=== PATIENT | male | born 1990 | race Caucasian/White ===

== ENCOUNTER 2016-09-10 19:21 | Emergency (ER) | payer MEDICAID ==
[2016-09-10] MEDS ORDERED: NORMAL SALINE 1000 ML 1,000 ML IV ONE (20:13)
[2016-09-10] MEDS ORDERED: IBUPROFEN 600 MG TABLET PO ONE (20:13)
[2016-09-10] MEDS ORDERED: ONDANSETRON 4 MG TAB.RAPDIS PO ONE (20:13)
--- NOTE | 2016-09-10 20:19 | ER Document Report ---
ED Medical Screen (RME) - General Stated Complaint: LOWER BACK PAIN Notes: 25 year old male, c/o vomiting and abd/flank pain on both sides starting today. Reports chills, sore throat. Denies hx stones, hx IV drug abuse, denies focal numbness or weakness, denies any surgeries or daily meds. TRAVEL OUTSIDE OF THE [place] IN LAST 30 DAYS: No - Related Data Allergies/Adverse Reactions: pseudoephedrine HCl [From Sudafed] Allergy (Verified 09/17/15 21:53) Past Medical History Psychiatric Medical History: Reports: Hx Attention Deficit Hyperactivity Disorder, Hx Bipolar Disorder - Immunizations Hx Diphtheria, Pertussis, Tetanus Vaccination: Yes Physical Exam - Back Back: Tender - generalized mid to lower, slightly worse on the left Course - Re-evaluation Re-evalutation: flank pain worse on the left but also generalized, abdomen generally tender in the upper abd, difficult to assess based on wheelchair and patient habitus. Patient tachycardic. Ordering IVF, placed as 3H.
--- NOTE | 2016-09-10 22:14 | ER Document Report ---
ED General - General Mode of Arrival: Ambulatory Information source: Patient TRAVEL OUTSIDE OF THE [place] IN LAST 30 DAYS: No - HPI Onset: This morning Onset/Duration: Persistent Quality of pain: Achy Severity: None Similar symptoms previously: No Recently seen / treated by doctor: No <AMY LUKE - Last Filed: 09/10/16 22:44> <GOLDIE MEJIA - Last Filed: 10/04/16 11:03> - General Chief Complaint: Back Pain Stated Complaint: LOWER BACK PAIN Notes: Patient is a 25-year-old male that presents to the emergency department today with complaints of low back pain which began this morning. Patient also mentions that he has had a sore throat, vomiting, and chills today. Patient states he noticed the back pain first upon awakening this morning, he states he attempted to "walk it off" which made it worse. Patient states he felt fine when he went to bed last night and he had no injury or trauma to his back. Patient also denies any previous injuries to his back. Patient denies a cough. (AMY LUKE) - Related Data Allergies/Adverse Reactions: pseudoephedrine HCl [From Sudafed] Allergy (Verified 09/17/15 21:53) Past Medical History - General Information source: Patient - Social History Smoking Status: Never Smoker Cigarette use (# per day): No Frequency of alcohol use: None Drug Abuse: None Lives with: Family Family History: Reviewed & Not Pertinent Psychiatric Medical History: Reports: Hx Attention Deficit Hyperactivity Disorder, Hx Bipolar Disorder Surgical Hx: Negative - Immunizations Hx Diphtheria, Pertussis, Tetanus Vaccination: Yes <AMY LUKE - Last Filed: 09/10/16 22:44> Review of Systems - Review of Systems Constitutional: See HPI, Chills. denies: Fever EENT: See HPI, Throat pain Cardiovascular: No symptoms reported Respiratory: denies: Cough Gastrointestinal: See HPI, Vomiting Genitourinary: No symptoms reported Male Genitourinary: No symptoms reported Musculoskeletal: See HPI, Back pain - low back pain Skin: No symptoms reported Hematologic/Lymphatic: No symptoms reported Neurological/Psychological: No symptoms reported -: Yes All other systems reviewed and negative <AMY LUKE - Last Filed: 09/10/16 22:44> Physical Exam <AMY LUKE - Last Filed: 09/10/16 22:44> <GOLDIE MEJIA - Last Filed: 10/04/16 11:03> - Vital signs Vitals: Pulse Resp BP Pulse Ox 92 16 118/63 94 09/11/16 00:27 09/11/16 00:27 09/11/16 00:27 09/11/16 00:27 - Notes Notes: Physical Exam: General: Alert, appears well. HEENT: Normocephalic. Atraumatic. PERRL. Extraocular movements intact. Oropharynx clear. TMs are clear bilaterally. No posterior pharynx erythema or exudate. Neck: Supple. Non-tender. Respiratory: No respiratory distress. Clear and equal breath sounds bilaterally. Cardiovascular: Regular rate and rhythm. Abdominal: Normal Inspection. Non-tender. No distension. Normal Bowel Sounds. Back: Paralumbar tenderness with palpation. Negative straight leg raise bilaterally. No deformity or step off. Extremities: Moves all four extremities. Upper extremities: Normal inspection. Normal ROM. Lower extremities: Normal inspection. No edema. Normal ROM. Neurological: Normal cognition. AAOx4. Normal speech. 2+ patellar DTRs bilaterally. Psychological: Normal affect. Normal Mood. Skin: Warm. Dry. Normal color. (AMY LUKE) Course - Laboratory Result Diagrams: 09/10/16 22:10 09/10/16 22:10 <AMY LUKE - Last Filed: 09/10/16 22:44> - Laboratory Result Diagrams: 09/10/16 22:10 09/10/16 22:10 <GOLDIE MEJIA - Last Filed: 10/04/16 11:03> - Re-evaluation Re-evalutation: 09/10/16 22:58 Patient presents emergency, chief plain low back pain. Says he woke up with it this morning and denies any injury. Pain is paralumbar nature no loss of bowel or bladder function. Patient is ambulatory with pain when he moves or sits in the upright position. He doesn't work to get anything in particular they did denies a history of back pain no burning with urination blood in the urine fevers chills cough chest pain shortness of breath or flank pain. He also reports a sore throat on it's been going on for approximately 1 day. He reports one episode of vomiting but no diarrhea or blood in his stool. He has a history of bipolar is not currently on his medications and hasn't seen his primary care physician recently. On examination he is afebrile normotensive and tachycardic. His awake alert GCS 15 no acute distress. Heart lungs abdomen no acute guarding rebound rigidity he's got no midline cervical thoracic or lumbar tenderness Paralumbar muscular skeletal tenderness bilaterally. No redness swelling abrasion contusion or deformity to the back no recent instrumentation or concerns for spinal epidural abscess. Equal bilateral femoral dorsalis pedis posterior tibial pulses was negative straight leg raise test. With reevaluation and been ordered prior to my seeing the patient. X-ray of the lumbar spine is ordered urinalysis and Toradol. Pharynx is normal, and strep test is ordered. 09/10/16 23:45 Acute workup positive for strep patient given Toradol Bicillin L-A 1.2 million units IM no concerns for peritonsillar abscess or sepsis. We'll discharge given primary care physician for follow-up and discuss reasons for ED return sooner ( GOLDIE MEJIA) - Vital Signs Vital signs: Temp Pulse Resp BP Pulse Ox 92 16 118/63 94 09/11/16 00:27 09/11/16 00:27 09/11/16 00:27 09/11/16 00:27 - Laboratory Laboratory results interpreted by me: 09/10/16 09/10/16 22:10 22:10 WBC 13.0 H RBC 5.80 H Seg Neutrophils % 82.7 H Lymphocytes % 9.0 L Absolute Neutrophils 10.7 H Glucose 112 H Discharge <AMY LUKE - Last Filed: 09/10/16 22:44> <GOLDIE MEJIA - Last Filed: 10/04/16 11:03> - Discharge Clinical Impression: acute strep pharyngitis, low back pain Condition: Stable Disposition: HOME, SELF-CARE Instructions: Low Back Pain ([facility]) Additional Instructions: Strep Throat Your sore throat is due to the streptococcus germ (strep throat). Strep throat usually makes you feel quite ill with fever and aches, headache, swollen sore throat, and tender bumps under the angles of the jaw. Strep throat requires antibiotic treatment. Although the sore throat may go away by itself, complications such as rheumatic fever, kidney disease, or throat abscess can occur. We usually prescribe antibiotics by mouth. Be sure to take the medicine until it's gone. If you stop early, the strep may come back. If you are vomiting, are severely ill, or can't remember to take pills, we can give you an antibiotic shot. Take acetaminophen or ibuprofen for pain and fever. Sip frequent clear liquids, or use popsicles or ice chips. Anesthetic sprays or lozenges may help. Make sure the air in the room is not too dry. Avoid using decongestants or antihistamines. Call the doctor if there is no improvement in three days, or if you have difficulty breathing, increasing throat pain, high fever, rash, or frequent vomiting. Referrals: JUDAH HUGO PA-C [Primary Care Provider] - (Call for an appointment to be seen in follow-up in 3-4 days return for increasing worsening or any symptoms) Scribe Attestation: 09/10/16 23:47 I personally performed the services described in the documentation reviewed the documentation recorded by my scribe in my presence and it accurately and completely records my words and actions (GOLDIE MEJAI) Scribe Documentation - Scribe Written by Lilibeth:: Lilibeth Garner, [id number] 09/10/2016 acting as scribe for :: Henrry <AMY LUKE - Last Filed: 09/10/16 22:44>
[2016-09-10] MEDS ORDERED: KETOROLAC TROMETHAMINE 60 MG/2 ML SDV IM ONE (22:15)
[2016-09-10 22:33] LABS: ABSOLUTE EOSINOPHILS # (AUTO) 0.1 10^3/uL (0.0-0.6); ABSOLUTE LYMPHOCYTES (AUTO) 1.2 10^3/uL (0.5-4.7); ABSOLUTE NEUT (AUTO) 10.7 10^3/uL (1.7-8.2); BASOPHILS % (AUTO) 0.3 % (0-2); EOSINOPHILS % (AUTO) 0.5 % (0-6); HEMATOCRIT 48.7 % (37.9-51.0); HEMOGLOBIN 16.2 g/dL (13.5-17.0); HGB HCT DIFFERENCE -0.1; MEAN CORPUSCULAR HGB CONC 33.3 g/dL (32.0-36.0); MEAN CORPUSCULAR VOLUME 84 fl (80-97); MONOCYTES % (AUTO) 7.5 % (3-13); RED CELL DISTRIBUTION WIDTH 13.6 % (11.5-14.0); SEGMENTED NEUTROPHILS % (AUTO) 82.7 % (42-78)
[2016-09-10 22:40] LABS: APPEARANCE,URINE CLEAR; BILIRUBIN,URINE NEGATIVE (NEGATIVE); GLUCOSE, URINE NEGATIVE (NEGATIVE); KETONES,URINE NEGATIVE (NEGATIVE); LEUKOCYTE ESTERASE,URINE NEGATIVE (NEGATIVE); NITRITE,URINE NEGATIVE (NEGATIVE); PROTEIN,URINE NEGATIVE (NEGATIVE); URINE SPECIFIC GRAVITY 1.015; UROBILINOGEN,URINE NEGATIVE mg/dL (<2.0)
[2016-09-10 22:46] LABS: ALANINE AMINOTRANSFERASE 37 U/L (21-72); ALBUMIN 3.9 g/dL (3.5-5.0); ALKALINE PHOSPHATASE 71 U/L (38-126); ANION GAP 13 (5-19); ASPARTATE AMINO TRANSFERASE 27 U/L (17-59); BILIRUBIN,DIRECT 0.4 mg/dL (0.0-0.4); BLOOD UREA NITROGEN 17 mg/dL (7-20); CALCIUM 8.9 mg/dL (8.4-10.2); CARBON DIOXIDE 23 mmol/L (22-30); CHLORIDE 101 mmol/L (98-107); CREATININE RESULT 1.06 mg/dL (0.52-1.25); GLUCOSE 112 mg/dL (75-110); POTASSIUM 3.8 mmol/L (3.6-5.0); SODIUM 137.3 mmol/L (137-145); TOTAL PROTEIN 6.3 g/dL (6.3-8.2)
[2016-09-10 22:54] LABS: URINE BARBITURATES SCREEN NEGATIVE; URINE METHADONE SCREEN NEGATIVE; URINE OPIATES LOW NEGATIVE; URINE PHENCYCLIDINE SCREEN NEGATIVE
[2016-09-10] MEDS ORDERED: PENICILLIN G BENZATHINE 1.2 MILLION UNIT/2 ML DISP.SYRIN IM ONE (23:45)
[2016-09-11 00:28] VITALS: BP 118/63
== END 2016-09-11 00:27 | disposition home or self-care (01) ==
LOC: ER 19:21
DX: J02.0 Streptococcal pharyngitis (principal); M54.5 Low back pain; R68.83 Chills (without fever); R10.30 Lower abdominal pain, unspecified; R11.10 Vomiting, unspecified
CPT/HCPCS: 99283; 96372; 96360; 36415; 87880; 83690; 85025; 80053; 81001; 80307; 72110; J1885; S0119; J3490; J0561; J7030

== ENCOUNTER 2017-01-22 02:24 | Emergency (ER) | payer MEDICAID ==
--- NOTE | 2017-01-22 05:21 | ER Document Report ---
ED General - General Chief Complaint: Headache Stated Complaint: LIGHTHEADED,COLD SWEATS Time Seen by Provider: 01/22/17 05:20 Mode of Arrival: Ambulatory Information source: Patient Notes: 26 yo smoker occasional etoh, no drugs male c/o inability to smell or taste for over a week, sweats, waking up with intermittent frontal migraines, lightheadedness/vertigo intermittent all day long. Worse when bending forward. Almost fell in the shower. No cough. Started new medicine for ADHD. PMH: pilonidal cyst removed. TRAVEL OUTSIDE OF THE [place] IN LAST 30 DAYS: No - Related Data Allergies/Adverse Reactions: pseudoephedrine HCl [From Vicarious] Allergy (Verified 01/22/17 02:29) Past Medical History - General Information source: Patient - Social History Smoking Status: Current Every Day Smoker Frequency of alcohol use: Occasional Drug Abuse: None Lives with: Spouse/Significant other Family History: Reviewed & Not Pertinent Renal/ Medical History: Denies: Hx Peritoneal Dialysis Psychiatric Medical History: Reports: Hx Attention Deficit Hyperactivity Disorder, Hx Bipolar Disorder Surgical Hx: Negative - Immunizations Hx Diphtheria, Pertussis, Tetanus Vaccination: Yes Review of Systems - Review of Systems Constitutional: No symptoms reported EENT: See HPI Cardiovascular: No symptoms reported Respiratory: No symptoms reported Gastrointestinal: No symptoms reported Genitourinary: No symptoms reported Male Genitourinary: No symptoms reported Musculoskeletal: No symptoms reported Skin: No symptoms reported Hematologic/Lymphatic: No symptoms reported Neurological/Psychological: See HPI Physical Exam - Vital signs Vitals: Temp Pulse Resp BP Pulse Ox 97.9 F 88 16 136/90 H 97 01/22/17 02:29 01/22/17 02:29 01/22/17 02:29 01/22/17 02:29 01/22/17 02:29 Interpretation: Normal - Notes Notes: no dizzy or vertigo with standing at the bed, IV fluids infused. - General General appearance: Appears well - no d, Alert, Other - flat affect, avoids eye contact In distress: None - HEENT Head: Normocephalic, Atraumatic Eyes: Normal Conjunctiva: Normal Pupils: PERRL Tympanic membrane: Normal Sinus: No: Swelling Nasal: Other - boggy Pharynx: Normal Neck: Supple. No: Lymphadenopathy - Respiratory Respiratory status: No respiratory distress Chest status: Nontender Breath sounds: Normal Chest palpation: Normal - Cardiovascular Rhythm: Regular Heart sounds: Normal auscultation Murmur: No - Abdominal Inspection: Normal Distension: No distension Bowel sounds: Normal Tenderness: Nontender Organomegaly: No organomegaly - Back Back: Normal, Nontender - Extremities General upper extremity: Normal inspection, Nontender, Normal color, Normal ROM , Normal temperature General lower extremity: Normal inspection, Nontender, Normal color, Normal ROM , Normal temperature, Normal weight bearing. No: Caterina's sign - Neurological Neuro grossly intact: Yes Cognition: Normal Orientation: AAOx4 [place] Coma Scale Eye Opening: Spontaneous [place] Coma Scale Verbal: Oriented [place] Coma Scale Motor: Obeys Commands [place] Coma Scale Total: 15 Speech: Normal Motor strength normal: LUE, RUE, LLE, RLE Sensory: Normal - Psychological Associated symptoms: Normal mood, Flat affect, Other - frrstrated - Skin Skin Temperature: Warm Skin Moisture: Dry Skin Color: Normal Course - Re-evaluation Re-evalutation: 01/22/17 06:19 Patient did not want to take IV medicine he wanted the IV taken out will order the medication orally. 01/22/17 07:[address], explained to the pt - Vital Signs Vital signs: Temp Pulse Resp BP Pulse Ox 97.9 F 88 16 136/90 H 97 01/22/17 02:29 01/22/17 02:29 01/22/17 02:29 01/22/17 02:29 01/22/17 02:29 - Laboratory Result Diagrams: 01/22/17 05:40 01/22/17 05:40 Laboratory results interpreted by me: 01/22/17 01/22/17 05:40 05:40 WBC 12.0 H Eosinophils % 9.0 H Absolute Eosinophils 1.1 H ALT 98 H Discharge - Discharge Clinical Impression: dizziness, Anosmia, Taste absent Headache Qualifiers: Headache type: unspecified Headache chronicity pattern: unspecified pattern Intractability: not intractable Qualified Code(s): R51 - Headache Sinusitis Qualifiers: Sinusitis location: other Chronicity: acute Recurrence: non-recurrent Qualified Code(s): J01.80 - Other acute sinusitis Condition: Good Disposition: HOME, SELF-CARE Instructions: Anti-Inflammatory Medication ([facility]), Use of Diphenhydramine, ENT, Headache ([facility]), Neurologist, Augmentin ([facility]), Sinusitis ([facility]) Additional Instructions: see ears nose and throat doctor for the loss of sense of smell and taste/ sinusitis see neurologist for the headache to ER any concerns or new symptoms heat to sinus saline nasal spray four times per day Please complete the patient satisfaction survey if you get one, and return it.. If you do not receive a survey, then you can go to the [facility] website, [email or web address] and place your comments about your very good care. Thank you very much. It was a pleasure being your medical provider today. Prescriptions: Amoxicillin/Potassium Clav [Augmentin 875-125 Tablet] 1 each PO BID #20 tablet Referrals: MAJOR LOJA MD [NO LOCAL MD] - Follow up as needed
[2017-01-22] MEDS ORDERED: NORMAL SALINE 1000 ML 1,000 ML IV ONE (05:36)
[2017-01-22] MEDS ORDERED: PROCHLORPERAZINE EDISYLATE INJ 10 MG/2 ML VIAL IV ONE (05:41)
[2017-01-22] MEDS ORDERED: DIPHENHYDRAMINE HCL 50 MG/ML VIAL IV ONE (05:41)
[2017-01-22 05:59] LABS: ABSOLUTE BASOPHILS # (AUTO) 0.1 10^3/uL (0.0-0.2); ABSOLUTE EOSINOPHILS # (AUTO) 1.1 10^3/uL (0.0-0.6); ABSOLUTE LYMPHOCYTES (AUTO) 3.4 10^3/uL (0.5-4.7); ABSOLUTE NEUT (AUTO) 6.5 10^3/uL (1.7-8.2); BASOPHILS % (AUTO) 0.7 % (0-2); HEMATOCRIT 46.2 % (37.9-51.0); HEMOGLOBIN 15.7 g/dL (13.5-17.0); HGB HCT DIFFERENCE 0.9; LYMPHOCYTES % (AUTO) 27.8 % (13-45); MEAN CORPUSCULAR HEMOGLOBIN 28.6 pg (27.0-33.4); MEAN CORPUSCULAR HGB CONC 33.9 g/dL (32.0-36.0); MEAN CORPUSCULAR VOLUME 84 fl (80-97); MONOCYTES % (AUTO) 8.7 % (3-13); RED BLOOD COUNT 5.48 10^6/uL (4.35-5.55); RED CELL DISTRIBUTION WIDTH 13.4 % (11.5-14.0); SEGMENTED NEUTROPHILS % (AUTO) 53.8 % (42-78)
[2017-01-22 06:10] LABS: ALANINE AMINOTRANSFERASE 98 U/L (21-72); ALKALINE PHOSPHATASE 80 U/L (38-126); ANION GAP 12 (5-19); ASPARTATE AMINO TRANSFERASE 47 U/L (17-59); BILIRUBIN,DIRECT 0.4 mg/dL (0.0-0.4); BILIRUBIN,TOTAL 0.5 mg/dL (0.2-1.3); BLOOD UREA NITROGEN 17 mg/dL (7-20); CALCIUM 9.6 mg/dL (8.4-10.2); CARBON DIOXIDE 26 mmol/L (22-30); CHLORIDE 104 mmol/L (98-107); CREATININE RESULT 1.14 mg/dL (0.52-1.25); GLUCOSE 92 mg/dL (75-110); POTASSIUM 3.8 mmol/L (3.6-5.0); SODIUM 142.1 mmol/L (137-145); TOTAL PROTEIN 6.7 g/dL (6.3-8.2)
[2017-01-22] MEDS ORDERED: DIPHENHYDRAMINE HCL 50 MG CAPSULE PO ONE (06:17)
[2017-01-22] MEDS ORDERED: PROCHLORPERAZINE MALEATE 10 MG TABLET PO ONE (06:17)
[2017-01-22] MEDS ORDERED: IBUPROFEN 800 MG TABLET PO ONE (06:22)
--- NOTE | 2017-01-22 07:02 | RADIOLOGY REPORT (SQ) ---
EXAM DESCRIPTION: CT HEAD WITHOUT COMPLETED DATE/TIME: 01/22/2017 6:25 am REASON FOR STUDY: headache COMPARISON: 09/05/2006. TECHNIQUE: Axial images acquired through the brain without intravenous contrast. Images reviewed wi th bone, brain and subdural windows. Images stored on PACS. All CT scanners at this facility use dose modulation, iterative reconstruction, and/or weight based d osing when appropriate to reduce radiation dose to as low as reasonably achievable (ALARA). [facility]: Dose Right [facility]: CareDose [facility]: Dose Right [facility]: Teradose 4D [facility]: Smart [employer] RADIATION DOSE: Up-to-date CT equipment and radiation dose reduction techniques were employed. CTDIv ol: 64.6 mGy. DLP: 1163 mGy-cm. mGy. LIMITATIONS: None. FINDINGS: VENTRICLES: Normal size and contour. CEREBRUM: No masses. No hemorrhage. No midline shift. No evidence for acute infarction. Normal gra y/white matter differentiation. No areas of low density in the white matter. CEREBELLUM: No masses. No hemorrhage. No alteration of density. No evidence for acute infarction. EXTRAAXIAL SPACES: No fluid collections. No masses. ORBITS AND GLOBE: No intra- or extraconal masses. Normal contour of globe without masses. CALVARIUM: No fracture. PARANASAL SINUSES: Moderate -severe mucous -mucosal occlusion of bilateral maxillary air cells with a ir-fluid levels, left more than right, moderate soft tissue occlusion of the ethmoid air cells, and m [id number] sphenoid mucosal thickening, new compared with prior CT, 09/05/2006. SOFT TISSUES: No mass or hematoma. OTHER: No other significant finding. IMPRESSION: Moderate to severe sinusitis of the maxillary and ethmoid air cells with acute inflammat ory components. Otherwise, no significant CT abnormality of the brain. COMMENT: Quality ID # [id number]: Final reports with documentation of one or more dose reduction techniques (e.g., Automated exposure control, adjustment of the mA and/or kV according to patient size, use of iterative reconstruction technique) TECHNICAL DOCUMENTATION: JOB ID: [id number] [employer]- All Rights Reserved
[2017-01-22] MEDS ORDERED: AMOXICILLIN TRIHYDRATE 500 MG CAPSULE PO ONE (07:11)
[2017-01-22] MEDS ORDERED: AMOXICILLIN TR/POT CLAVULANATE 500-125 MG TAB PO ONE (07:11)
[2017-01-22 07:43] VITALS: BP 131/82
== END 2017-01-22 07:43 | disposition home or self-care (01) ==
LOC: ER 02:24
DX: R42 Dizziness and giddiness (principal); R43.0 Anosmia; R43.9 Unspecified disturbances of smell and taste; J01.80 Other acute sinusitis; R51 Headache; F17.200 Nicotine dependence, unspecified, uncomplicated
CPT/HCPCS: 99284; 36415; 85025; 80053; 70450; J3490 ×2; S0183

== ENCOUNTER 2017-02-19 01:33 | Emergency (ER) | payer MEDICAID ==
[2017-02-19 01:42] VITALS: BP 141/88
== END 2017-02-19 04:01 | disposition left against medical advice (07) ==
LOC: ER 01:33
DX: Z53.21 Procedure and treatment not carried out due to patient leaving prior to being seen by health care provider (principal)

== ENCOUNTER 2017-02-26 00:23 | Emergency (ER) | payer MEDICAID ==
[2017-02-26] MEDS ORDERED: GABAPENTIN 300 MG CAPSULE PO ONE (02:03)
--- NOTE | 2017-02-26 02:06 | ER Document Report ---
ED General - General Chief Complaint: Numbness of Arm Stated Complaint: TINGLING IN RIGHT ARM Time Seen by Provider: 02/26/17 01:46 Notes: Patient is a 26-year-old male who presents with paresthesias to his right first through third digits. Patient states that this started after a staff member at a plasma donation center attempted to place an IV on 2 separate occasions apparently striking a nerve on both times resulting in the development of paresthesias to the affected regions. He does note a dull, burning, moderate discomfort to the affected areas. Nothing improves or worsens his symptoms. He denies a history of similar symptoms in the past. He has not seen his primary doctor regarding today's concerns. He denies any loss of motor function. No additional symptoms in any other location of his body. TRAVEL OUTSIDE OF THE [place] IN LAST 30 DAYS: No - Related Data Allergies/Adverse Reactions: pseudoephedrine HCl [From Sudafed] Allergy (Verified 02/19/17 01:39) Past Medical History - General Information source: Patient - Social History Smoking Status: Never Smoker Frequency of alcohol use: None Drug Abuse: None Lives with: Spouse/Significant other Family History: Reviewed & Not Pertinent Patient has suicidal ideation: No Patient has homicidal ideation: No Renal/ Medical History: Denies: Hx Peritoneal Dialysis Psychiatric Medical History: Reports: Hx Attention Deficit Hyperactivity Disorder, Hx Bipolar Disorder - Immunizations Hx Diphtheria, Pertussis, Tetanus Vaccination: Yes Review of Systems - Review of Systems Notes: Constitutional: Negative for fever. HENT: Negative for sore throat. Eyes: Negative for visual changes. Cardiovascular: Negative for chest pain. Respiratory: Negative for shortness of breath. Gastrointestinal: Negative for abdominal pain, vomiting or diarrhea. Genitourinary: Negative for dysuria. Musculoskeletal: Negative for back pain. Skin: Negative for rash. Neurological: Negative for headaches, positive for paresthesias to the right hand 10 point ROS negative except as marked above and in HPI. Physical Exam - Vital signs Vitals: Temp Pulse Resp BP Pulse Ox 98.7 F 91 18 149/98 H 98 02/26/17 00:49 02/26/17 00:49 02/26/17 00:49 02/26/17 00:49 02/26/17 00:49 Interpretation: Hypertensive Notes: PHYSICAL EXAMINATION: GENERAL: Well-appearing, well-nourished and in no acute distress. HEAD: Atraumatic, normocephalic. EYES: Pupils equal round and reactive to light, extraocular movements intact, sclera anicteric, conjunctiva are normal. ENT: nares patent, oropharynx clear without exudates. Moist mucous membranes. NECK: Normal range of motion, supple without lymphadenopathy LUNGS: Breath sounds clear to auscultation bilaterally and equal. No wheezes rales or rhonchi. HEART: Regular rate and rhythm without murmurs ABDOMEN: Soft, nontender, normoactive bowel sounds. No guarding, no rebound. No masses appreciated. EXTREMITIES: Normal range of motion, no pitting or edema. No cyanosis. NEUROLOGICAL: No focal neurological deficits. Moves all extremities spontaneously and on command. RMU motor and sensory distribution is intact bilaterally. Patient does have dulling of sensation however to the first through third digits on the volar aspect of the right hand. Consistent with median nerve distribution. PSYCH: Normal mood, normal affect. SKIN: Warm, Dry, normal turgor, no rashes or lesions noted. Course - Re-evaluation Re-evalutation: 02/26/17 02:02 Patient presents with median nerve distribution paresthesias of the left hand after apparently having this nerve struck during a blood draw attempt at a plasma donation center twice today. Patient reports paresthesias the area but has no true sensory loss or motor deficit. Suspect likely acute neuropathy in the setting of acute irritation from an IV attempt. No indication for labs or imaging. I will start the patient on gabapentin given his discomfort for the area and have instructed him to follow-up with a neurologist if he is not having improvement of symptoms within the next 1-2 weeks. At this time will discharge with return precautions and follow-up recommendations. Verbal discharge instructions given a the bedside and opportunity for questions given. Medication warnings reviewed. Patient is in agreement with this plan and has verbalized understanding of return precautions and the need for primary care follow-up in the next 24-72 hours. - Vital Signs Vital signs: Temp Pulse Resp BP Pulse Ox 98.7 F 91 18 149/98 H 98 02/26/17 00:49 02/26/17 00:49 02/26/17 00:49 02/26/17 00:49 02/26/17 00:49 Discharge - Discharge Clinical Impression: Paresthesias in right hand Median nerve injury Qualifiers: Encounter type: initial encounter Location of peripheral nerve injury: forearm Laterality: right Qualified Code(s): S54.11XA - Injury of median nerve at forearm level, right arm, initial encounter Condition: Good Disposition: HOME, SELF-CARE Additional Instructions: Your symptoms are likely related to any irritation of your median nerve from the blood draw today. Your being started on gabapentin which you can take for discomfort to the area until your symptoms are resolved. Please follow-up with a neurologist if you are not having resolution of your symptoms over the next 1- 2 weeks. Return to the emergency department if you develop worsening of your symptoms, weakness, or any new symptoms that are worrisome to you. Prescriptions: Gabapentin 300 mg PO TID #60 capsule
[2017-02-26 03:03] VITALS: BP 154/84
== END 2017-02-26 03:03 | disposition home or self-care (01) ==
LOC: ER 00:23
DX: S54.11XA Injury of median nerve at forearm level, right arm, initial encounter (principal); R20.0 Anesthesia of skin; X58.XXXA Exposure to other specified factors, initial encounter
CPT/HCPCS: 99283; J3490

== ENCOUNTER 2017-03-15 13:25 | Emergency (ER) | payer MEDICAID ==
--- NOTE | 2017-03-15 14:25 | ER Document Report ---
ED Medical Screen (RME) - General Chief Complaint: Testicular Pain Stated Complaint: PAIN WITH URINATION Time Seen by Provider: 03/15/17 14:24 Notes: Patient reports 1 week of intermittent right testicle pain. It is worse with movement, bowel movements, coughing. TRAVEL OUTSIDE OF THE [place] IN LAST 30 DAYS: No - Related Data Allergies/Adverse Reactions: pseudoephedrine HCl [From Sudafed] Allergy (Verified 03/15/17 13:28) Home Medications: Current Home Medications Atomoxetine HCl [Strattera] 25 mg PO BID 03/15/17 [History] Olanzapine/Fluoxetine HCl [Symbyax 6-25 mg Capsule] 1 tab PO DAILY 03/15/17 [ History] Past Medical History Renal/ Medical History: Denies: Hx Peritoneal Dialysis Psychiatric Medical History: Reports: Hx Attention Deficit Hyperactivity Disorder, Hx Bipolar Disorder - Immunizations Hx Diphtheria, Pertussis, Tetanus Vaccination: Yes Physical Exam - Vital signs Vitals: Temp Pulse Resp BP Pulse Ox 98.2 F 100 20 141/89 H 97 03/15/17 13:28 03/15/17 13:28 03/15/17 13:28 03/15/17 13:28 03/15/17 13:28 Course - Vital Signs Vital signs: Temp Pulse Resp BP Pulse Ox 98.2 F 100 20 141/89 H 97 03/15/17 13:28 03/15/17 13:28 03/15/17 13:28 03/15/17 13:28 03/15/17 13:28
[2017-03-15 14:54] LABS: ABSOLUTE BASOPHILS # (AUTO) 0.1 10^3/uL (0.0-0.2); ABSOLUTE EOSINOPHILS # (AUTO) 1.1 10^3/uL (0.0-0.6); ABSOLUTE MONOCYTES (AUTO) 0.6 10^3/uL (0.1-1.4); ABSOLUTE NEUT (AUTO) 4.7 10^3/uL (1.7-8.2); BASOPHILS % (AUTO) 1.2 % (0-2); EOSINOPHILS % (AUTO) 12.8 % (0-6); HEMATOCRIT 46.9 % (37.9-51.0); HEMOGLOBIN 16.3 g/dL (13.5-17.0); LYMPHOCYTES % (AUTO) 23.8 % (13-45); MEAN CORPUSCULAR HEMOGLOBIN 29.1 pg (27.0-33.4); MEAN CORPUSCULAR HGB CONC 34.7 g/dL (32.0-36.0); MEAN CORPUSCULAR VOLUME 84 fl (80-97); MONOCYTES % (AUTO) 6.8 % (3-13); RED BLOOD COUNT 5.59 10^6/uL (4.35-5.55); RED CELL DISTRIBUTION WIDTH 13.4 % (11.5-14.0); SEGMENTED NEUTROPHILS % (AUTO) 55.4 % (42-78); WHITE BLOOD COUNT 8.5 10^3/uL (4.0-10.5)
[2017-03-15 15:00] LABS: APPEARANCE,URINE SLIGHTLY-CLOUDY; BILIRUBIN,URINE NEGATIVE (NEGATIVE); GLUCOSE, URINE NEGATIVE (NEGATIVE); KETONES,URINE NEGATIVE (NEGATIVE); LEUKOCYTE ESTERASE,URINE NEGATIVE (NEGATIVE); NITRITE,URINE NEGATIVE (NEGATIVE); PROTEIN,URINE NEGATIVE (NEGATIVE); URINE SPECIFIC GRAVITY 1.011; UROBILINOGEN,URINE NEGATIVE mg/dL (<2.0)
[2017-03-15 15:25] LABS: ALANINE AMINOTRANSFERASE 43 U/L (21-72); ALKALINE PHOSPHATASE 75 U/L (38-126); ANION GAP 12 (5-19); ASPARTATE AMINO TRANSFERASE 22 U/L (17-59); BILIRUBIN,DIRECT 0.3 mg/dL (0.0-0.4); BILIRUBIN,TOTAL 0.5 mg/dL (0.2-1.3); BLOOD UREA NITROGEN 15 mg/dL (7-20); CALCIUM 9.1 mg/dL (8.4-10.2); CARBON DIOXIDE 25 mmol/L (22-30); CHLORIDE 105 mmol/L (98-107); CREATININE RESULT 0.97 mg/dL (0.52-1.25); GLUCOSE 104 mg/dL (75-110); POTASSIUM 4.1 mmol/L (3.6-5.0); TOTAL PROTEIN 6.3 g/dL (6.3-8.2)
[2017-03-15] MEDS ORDERED: OXYCODONE-ACETAMINOPHEN 5-325 MG TABLET PO ONE (15:34)
--- NOTE | 2017-03-15 16:31 | ER Document Report ---
ED GI/ <JULIOTRISTIAN - Last Filed: 03/15/17 16:38> - General Mode of Arrival: Ambulatory Information source: Patient TRAVEL OUTSIDE OF THE [place] IN LAST 30 DAYS: No - HPI Patient complains to provider of: Testicular pain - right testicular pain Onset: Last week Exacerbated by: Coughing, Other - BMs <GITA LOPEZ - Last Filed: 03/15/17 16:56> - General Chief Complaint: Testicular Pain Stated Complaint: PAIN WITH URINATION Time Seen by Provider: 03/15/17 14:24 Notes: Patient is a 26 year old male that presents to the emergency department with complaints of right testicular pain onset 5 days ago. Patient states that the pain is exacerbated when he coughs or having a BM. Patient denies any back pain. At bedside patient and patient's girlfriend seem irritable. (GITA LOPEZ) - Related Data Allergies/Adverse Reactions: pseudoephedrine HCl [From [employer]] Allergy (Verified 03/15/17 13:28) Home Medications: Current Home Medications Atomoxetine HCl [Strattera] 25 mg PO BID 03/15/17 [History] Olanzapine/Fluoxetine HCl [Symbyax 6-25 mg Capsule] 1 tab PO DAILY 03/15/17 [ History] Past Medical History - General Information source: Patient - Social History Smoking Status: Current Every Day Smoker Cigarette use (# per day): Yes - 1 pack a day Chew tobacco use (# tins/day): No Frequency of alcohol use: None Drug Abuse: None Family History: Reviewed & Not Pertinent Patient has suicidal ideation: No Patient has homicidal ideation: No Psychiatric Medical History: Reports: Hx Attention Deficit Hyperactivity Disorder, Hx Bipolar Disorder - Immunizations Hx Diphtheria, Pertussis, Tetanus Vaccination: Yes <GITA LOPEZ - Last Filed: 03/15/17 16:56> Review of Systems - Review of Systems Constitutional: No symptoms reported EENT: No symptoms reported Cardiovascular: No symptoms reported Respiratory: No symptoms reported Gastrointestinal: No symptoms reported Genitourinary: No symptoms reported Male Genitourinary: See HPI, Testicular pain Musculoskeletal: denies: Back pain Skin: No symptoms reported Hematologic/Lymphatic: No symptoms reported Neurological/Psychological: No symptoms reported -: Yes All other systems reviewed and negative <GITA LOPEZ - Last Filed: 03/15/17 16:56> Physical Exam - General General appearance: Appears well, Alert In distress: None - HEENT Head: Normocephalic, Atraumatic Eyes: Normal Conjunctiva: Normal Pupils: PERRL - Respiratory Respiratory status: No respiratory distress Chest status: Nontender Breath sounds: Normal - Cardiovascular Rhythm: Regular Heart sounds: Normal auscultation - Abdominal Inspection: Normal Bowel sounds: Normal Tenderness: Nontender Organomegaly: No organomegaly - Genitourinary Tenderness: Nontender - to groin insertion muscle or ingiunal area., Testicle tender - right testicle tender to palpation. No: Epididymis tender Scrotum: No: Swelling, Redness - Back Back: Normal. No: CVA tenderness - Extremities General upper extremity: Normal inspection, Normal ROM General lower extremity: Normal inspection, Normal ROM - Neurological Neuro grossly intact: Yes Cognition: Normal Orientation: AAOx4 [place] Coma Scale Eye Opening: Spontaneous [place] Coma Scale Verbal: Oriented [place] Coma Scale Motor: Obeys Commands Alc[place] Coma Scale Total: 15 Speech: Normal - Psychological Associated symptoms: Normal affect, Irritable - Skin Skin Temperature: Warm Skin Moisture: Dry Skin Color: Normal <GITA LOPEZ - Last Filed: 03/15/17 16:56> - Vital signs Vitals: Temp Pulse Resp BP Pulse Ox 98.2 F 100 20 141/89 H 97 03/15/17 13:28 03/15/17 13:28 03/15/17 13:28 03/15/17 13:28 03/15/17 13:28 Course - Laboratory Result Diagrams: 03/15/17 14:32 03/15/17 14:32 - Diagnostic Test Radiology reviewed: Reports reviewed - Ultrasound shows normal testes, normal epididymides, small bilateral hydroceles. Normal blood flow to both testicles. <TRISTIAN KIM - Last Filed: 03/15/17 16:38> - Laboratory Result Diagrams: 03/15/17 14:32 03/15/17 14:32 <GITA LOPEZ - Last Filed: 03/15/17 16:56> - Vital Signs Vital signs: Temp Pulse Resp BP Pulse Ox 98.2 F 100 20 141/89 H 97 03/15/17 13:28 03/15/17 13:28 03/15/17 13:28 03/15/17 13:28 03/15/17 13:28 - Laboratory Laboratory results interpreted by me: 03/15/17 14:32 RBC 5.59 H Eosinophils % 12.8 H Absolute Eosinophils 1.1 H Discharge <TRISTIAN KIM - Last Filed: 03/15/17 16:38> <GITA LOPEZ - Last Filed: 03/15/17 16:56> - Discharge Clinical Impression: Right testicular pain, Bilateral hydrocele Additional Instructions: Testicular Pain: Sometimes we can't prove the exact cause of testicle pain. Pain in the testicle can be caused by many different problems, including viral infections of the testicle, urinary tract infection, kidney stones, inflammation of the epididymis (the sac behind the testicle), hernia, dilated veins in the scrotum, or subtle injury. The most serious causes of testicular pain are tumor or twisting of the testicle. An ultrasound exam often shows what's wrong. When the initial testing doesn 't show a cause for the pain, we usually refer to a urologist. Rest. Gentle warmth may help with symptoms. It's usually helpful to wear underwear that gives good support to the testicles ("briefs" instead of "boxers "). Call the doctor or return if there is sudden worsening of pain, fever, vomiting, testicle swelling, or discoloration of the scrotum. TAKE THE MEDICATION PRESCRIBED. TAKE MOTRIN 800mg EVERY 8 HOURS OR ALEVE 2 TABLETS EVERY 12 HOURS FOR THE INFLAMMATION PAIN. SOAK IN WARM WATER. LIMIT ACTIVITY. AVOID HEAVY LIFTING. FOLLOW UP WITH YOUR DOCTOR THIS WEEK IF NOT IMPROVING. RETURN TO THE EMERGENCY ROOM IF ANY NEW OR WORSENING SYMPTOMS. Prescriptions: Doxycycline Hyclate 100 mg PO BID #20 tablet Oxycodone HCl/Acetaminophen [Percocet 5-325 mg Tablet] 1 tab PO ASDIR PRN #12 tablet PRN Reason: Referrals: JUDAH HUGO PA-C [Primary Care Provider] - Follow up in 3-5 days Scribe Attestation: 03/15/17 16:44 I personally performed the services described in the documentation, reviewed and edited the documentation which was dictated to the scribe in my presence, and it accurately records my words and actions. (TRISTIAN KIM) Scribe Documentation - Scribe Written by Scribe:: Lilibeth Grijalva, 03/15/2017 16:49 acting as scribe for :: Julio <GITA LOPEZ - Last Filed: 03/15/17 16:56>
--- NOTE | 2017-03-15 16:36 | RADIOLOGY REPORT (SQ) ---
EXAM DESCRIPTION: U/S SCROTUM W/DOPPLER COMPLETED DATE/TIME: 03/15/2017 4:18 pm REASON FOR STUDY: right test pain COMPARISON: None. TECHNIQUE: Static and realtime morales scale imaging of the scrotum and testes. Selected color Doppler and spectral images recorded to document blood flow. LIMITATIONS: None. FINDINGS: RIGHT: TESTICLE: Normal size. Normal echotexture. Normal blood flow. No mass. EPIDIDYMIS: Normal. HYDROCELE OR VARICOCELE: Small hydrocele is identified measuring 0.9 x 3.1 x 1.1 cm per HERNIA OR EXTRA-TESTICULAR MASS: No. OTHER: No other significant finding. LEFT: TESTICLE: Normal size. Normal echotexture. Normal blood flow. No mass. EPIDIDYMIS: Normal. HYDROCELE OR VARICOCELE: Small hydrocele is identified measuring 2.4 x 1.6 x 0.7 cm HERNIA OR EXTRA-TESTICULAR MASS: No. OTHER: No other significant finding. IMPRESSION: NO EVIDENCE OF TESTICULAR MASS OR TORSION. Small bilateral hydroceles. Other findings as noted above. TECHNICAL DOCUMENTATION: JOB ID: [id number] [employer]- All Rights Reserved
[2017-03-15] MEDS ORDERED: KETOROLAC TROMETHAMINE 60 MG/2 ML SDV IM ONE (16:44)
[2017-03-15] MEDS ORDERED: DOXYCYCLINE HYCLATE 100 MG TABLET PO ONE (16:44)
[2017-03-15 17:09] VITALS: BP 142/78
== END 2017-03-15 17:02 | disposition home or self-care (01) ==
LOC: ER 13:25
DX: N43.3 Hydrocele, unspecified (principal); N50.811 Right testicular pain; F17.210 Nicotine dependence, cigarettes, uncomplicated; Z88.8 Allergy status to other drugs, medicaments and biological substances
CPT/HCPCS: 99284; 96372; 36415; 85025; 80053; 81001; 76870; 93976; J3490; J1885

== ENCOUNTER 2017-08-04 17:00 | Emergency (ER) | payer MEDICAID ==
[2017-08-04 17:17] VITALS: BP 137/90
[2017-08-04] MEDS ORDERED: LIDOCAINE 1% INJ-PF (10 MG/ML) 30 ML SDV INJ ONE (19:07)
[2017-08-04] MEDS ORDERED: AMOXICILLIN TR/POT CLAVULANATE 500-125 MG TAB PO ONE (19:08)
--- NOTE | 2017-08-04 19:08 | ER Document Report ---
ED Medical Screen (RME) - General Chief Complaint: Dog Bite Stated Complaint: DOG BITE/LEFT ARM Time Seen by Provider: 08/04/17 18:36 Notes: Patient bit by a pit bull. Neighbor's dog. Reportedly up-to-date on shots. Lacerations to the left arm. No other injuries. I have greeted and performed a rapid initial assessment of this patient. A comprehensive ED assessment and evaluation of the patient, analysis of test results and completion of the medical decision making process will be conducted by additional ED providers. TRAVEL OUTSIDE OF THE [place] IN LAST 30 DAYS: No - HPI Onset: Just prior to arrival - Related Data Allergies/Adverse Reactions: acetaminophen Allergy (Verified 08/04/17 17:02) Past Medical History - General Information source: Patient - Social History Cigarette use (# per day): No Frequency of alcohol use: Occasional Drug Abuse: None Lives with: Family Family history: Reviewed & Not Pertinent Renal/ Medical History: Denies: Hx Peritoneal Dialysis Psychiatric Medical History: Reports: Hx Attention Deficit Hyperactivity Disorder, Hx Bipolar Disorder - Immunizations Hx Diphtheria, Pertussis, Tetanus Vaccination: Yes Review of Systems - Review of Systems Constitutional: No symptoms reported Cardiovascular: No symptoms reported Respiratory: No symptoms reported Musculoskeletal: See HPI, Other - Arm pain, left arm swelling Skin: See HPI, Other - Laceration/dog bite left arm Physical Exam - Vital signs Vitals: Temp Pulse Resp BP Pulse Ox 97.6 F 89 20 137/90 H 98 08/04/17 17:14 08/04/17 17:14 08/04/17 17:14 08/04/17 17:14 08/04/17 17:14 Interpretation: Normal - Respiratory Respiratory status: No respiratory distress Chest status: Nontender Breath sounds: Normal Chest palpation: Normal - Cardiovascular Rhythm: Regular Heart sounds: Normal auscultation Murmur: No - Extremities General upper extremity: Normal inspection, Nontender, Tender, Edema, Normal color, Normal ROM, Normal temperature, Other - Is a 1 cm laceration to the left forearm. Into the subcu tissue. There is a small adjacent abrasion into the epidermis Course - Re-evaluation Re-evalutation: 08/04/17 19:07 Patient will need anesthesia, irrigation and antibiotics. Dog is in quarantine at this time. This was a witnessed provoked incident according to patient. - Vital Signs Vital signs: Temp Pulse Resp BP Pulse Ox 97.6 F 89 20 137/90 H 98 08/04/17 17:14 08/04/17 17:14 08/04/17 17:14 08/04/17 17:14 08/04/17 17:14 Doctor's Discharge - Discharge Prescriptions: Amox Tr/Potassium Clavulanate [Augmentin 875-125 Tablet] 1 tab PO BID 7 Days tablet Oxycodone HCl [Oxy-Ir 5 mg Tablet] 5 mg PO Q8 PRN #10 tab PRN Reason: Referrals: JUDAH HUGO PA-C [Primary Care Provider] - Follow up as needed
[2017-08-04] MEDS ORDERED: OXYCODONE HCL IR 5 MG TABLET PO ONE (19:31)
--- NOTE | 2017-08-04 19:33 | ER Document Report ---
HPI - HPI Patient complains to provider of: Dog bite Onset: Just prior to arrival Onset/Duration: Sudden Quality of pain: Sharp Pain Level: 5 Context: Patient states that he was attempting to separate dogs who were fighting and got bit by his neighbor's dog. Patient with laceration to dorsal aspect of left forearm. Patient states that his neighbor reported that the animals shots are currently up-to-date. Associated Symptoms: Other - left arm laceration Exacerbated by: Denies Relieved by: Denies Similar symptoms previously: No Recently seen / treated by doctor: No - ROS ROS below otherwise negative: Yes Systems Reviewed and Negative: Yes All other systems reviewed and negative - CONSTITUTIONAL Constitutional: DENIES: Fever - MUSCULOSKELETAL Musculoskeletal: REPORTS: Extremity pain - DERM Skin Color: Ecchymosis Skin Problems: Abrasion, Laceration Past Medical History - General Information source: Patient - Social History Smoking Status: Current Every Day Smoker Cigarette use (# per day): No Smoking Education Provided: Yes Frequency of alcohol use: Occasional Drug Abuse: None Occupation: none Lives with: Family Family History: Reviewed & Not Pertinent Patient has suicidal ideation: No Patient has homicidal ideation: No Renal/ Medical History: Denies: Hx Peritoneal Dialysis Psychiatric Medical History: Reports: Hx Attention Deficit Hyperactivity Disorder, Hx Bipolar Disorder Past Surgical History: Reports: Other - pilondal cyst - Immunizations Hx Diphtheria, Pertussis, Tetanus Vaccination: Yes Vertical Provider Document - CONSTITUTIONAL Agree With Documented VS: Yes Exam Limitations: No Limitations General Appearance: WD/WN, No Apparent Distress - INFECTION CONTROL TRAVEL OUTSIDE OF THE [place] IN LAST 30 DAYS: No - HEENT HEENT: Atraumatic, Normocephalic - NECK Neck: Normal Inspection - RESPIRATORY Respiratory: No Respiratory Distress - CARDIOVASCULAR Pulses: Normal: Radial - MUSCULOSKELETAL/EXTREMETIES Musculoskeletal/Extremeties: MAEW, Tender - Left forearm tenderness involving laceration, No Edema, Eccymosis - Medial aspect of left upper arm - NEURO Level of Consciousness: Awake, Alert, Appropriate Motor/Sensory: No Motor Deficit - DERM Integumentary: Warm, Dry, Laceration - 1 cm laceration to dorsal aspect of left forearm Course - Vital Signs Vital signs: Temp Pulse Resp BP Pulse Ox 97.6 F 89 20 137/90 H 98 08/04/17 17:14 08/04/17 17:14 08/04/17 17:14 08/04/17 17:14 08/04/17 17:14 Procedures - Laceration/Wound Repair Left Arm Wound length (cm): 1 Wound's Depth, Shape: Linear Laceration pre-procedure: Other - Surgical scrub Wound explored: Clean Wound Debrided: Minimal Wound Repaired With: Steri-strips Post-procedure wound care: Sterile dressing applied Post-procedure NV exam normal: Yes Complications: No Discharge - Discharge Clinical Impression: Dog bite Qualifiers: Encounter type: initial encounter Qualified Code(s): W54.0XXA - Bitten by dog, initial encounter Arm laceration Qualifiers: Encounter type: initial encounter Laterality: left Qualified Code(s): S41.112A - Laceration without foreign body of left upper arm, initial encounter Condition: Stable Disposition: HOME, SELF-CARE Instructions: Prophylactic Antibiotic ([facility]), Skin Adhesive Closure ([facility]) Additional Instructions: Return immediately for any new or worsening symptoms Followup with your primary care provider, call tomorrow to make a followup appointment Follow-up with animal control regarding animal's immunization status. They determined that you need the rabies vaccination series, return here for that. Do not take your Valium if you are taking the pain medication oxycodone. Only take one medication or the other, do not take both together Prescriptions: Amox Tr/Potassium Clavulanate [Augmentin 875-125 Tablet] 1 tab PO BID 7 Days tablet Oxycodone HCl [Oxy-Ir 5 mg Tablet] 5 mg PO Q8 PRN #10 tab PRN Reason: Forms: Smoking Cessation Education Referrals: JUDAH HUGO PA-C [Primary Care Provider] - Follow up as needed
== END 2017-08-04 21:02 | disposition home or self-care (01) ==
LOC: ER 17:00
DX: S51.851A Open bite of right forearm, initial encounter (principal); W54.0XXA Bitten by dog, initial encounter; Y93.K9 Activity, other involving animal care; F17.200 Nicotine dependence, unspecified, uncomplicated
CPT/HCPCS: 12001; 99283; J3490 ×2

== ENCOUNTER 2017-09-14 19:46 | Emergency (ER) | payer MEDICAID ==
[2017-09-14 19:54] VITALS: BP 145/80
--- NOTE | 2017-09-14 20:29 | ER Document Report ---
ED Skin Rash/Insect Bite/Abscs - General Chief Complaint: Rash Stated Complaint: POSSIBLE ALLERGIC REACTION Time Seen by Provider: 09/14/17 20:12 Mode of Arrival: Ambulatory Information source: Patient TRAVEL OUTSIDE OF THE [place] IN LAST 30 DAYS: No - HPI Patient complains to provider of: Skin rash/lesion Notes: Patient is here with complaints of rash. Noticed it first on his arms and now it is spread to his bilateral neck. There is no itching. No fever. No new soaps, detergents, lotions, medications. He states that he did noticed a rash after staying in a hotel. No one else has the same rash. He denies any chest pain or shortness of breath. No abdominal pain. No nausea, vomiting, diarrhea. No other complaints at this time. - Related Data Allergies/Adverse Reactions: acetaminophen Allergy (Verified 08/04/17 17:02) Past Medical History - Social History Smoking Status: Current Every Day Smoker Frequency of alcohol use: Occasional Family History: Reviewed & Not Pertinent Patient has suicidal ideation: No Patient has homicidal ideation: No Renal/ Medical History: Denies: Hx Peritoneal Dialysis Psychiatric Medical History: Reports: Hx Attention Deficit Hyperactivity Disorder, Hx Bipolar Disorder Past Surgical History: Reports: Other - pilondal cyst - Immunizations Hx Diphtheria, Pertussis, Tetanus Vaccination: Yes Review of Systems - Review of Systems -: Yes All other systems reviewed and negative Physical Exam - Vital signs Vitals: Temp Pulse Resp BP Pulse Ox 97.9 F 90 16 145/80 H 96 09/14/17 19:52 09/14/17 19:52 09/14/17 19:52 09/14/17 19:52 09/14/17 19:52 - Notes Notes: GENERAL: alert, cooperative, nontoxic, no distress. HEAD: normocephalic, atraumatic EYES: conjunctiva pink without discharge, no external redness or swelling. EARS: no external swelling, no external redness NOSE: atraumatic, no external swelling MOUTH/THROAT: mucous membranes moist and pink NECK: soft, supple, full range of motion, no meningismus. CHEST: no distress, lungs clear and equal throughout. No wheezing, rales, rhonchi. CARDIAC: regular rate and rhythm, no murmur, normal capillary refill, normal pulses. BACK: full range of motion, no CVA tenderness. EXTREMITIES: full range of motion of all extremities. No redness, no swelling. NEURO: alert and oriented 3, no focal deficits, full range of motion of all extremities. PYSCH: appropriate mood, affect. Patient is cooperative. SKIN: pink, warm, dry, nonspecific maculopapular irregular shaped darker pigmented lesions to the AC of both arms as well as the bilateral neck. No vesicles. No petechiae. No hives. Course - Re-evaluation Re-evalutation: 09/14/17 20:27 Patient is nontoxic appearing with stable vitals. Is here with complaints of rash. Rashes on his arms and his bilateral neck. He denies any itching. No new soaps, detergents, lotions, medications. No fever. Rash is a semi- nonspecific appearance. Does have a possible appearance of fungal infection. This point I will discharge the patient home with Lotrisone cream. He is instructed to follow-up if not better in 1 week, sooner for worsening symptoms, high fever, spreading, difficulty breathing or swallowing, or for any further concerns. The patient's emergency department workup and current diagnosis were explained to the patient and or family. Follow-up instructions were provided. Medications if prescribed were discussed. Instructions for when to return to the emergency department including specific worrisome symptoms were discussed with the patient and/or family. The patient is noted to have elevated blood pressure during today's emergency department visit. The patient was informed of this finding. The patient was instructed that this may be related to pre-hypertension and requires further evaluation with a primary care provider. The patient has no hypertensive symptoms at this time. - Vital Signs Vital signs: Temp Pulse Resp BP Pulse Ox 97.9 F 90 16 145/80 H 96 09/14/17 19:52 09/14/17 19:52 09/14/17 19:52 09/14/17 19:52 09/14/17 19:52 Discharge - Discharge Clinical Impression: Dermatitis Condition: Stable Disposition: HOME, SELF-CARE Instructions: Ringworm (Tinea Corporis) ([facility]) Additional Instructions: Use medication as prescribed. Drink plenty fluids. Try taking over-the- counter Benadryl. Follow-up if not better in 1 week, sooner for worsening symptoms, high fever, difficulty breathing or swelling, or for any further concerns. Your blood pressure was elevated during today's visit. Have this rechecked with your doctor. Prescriptions: Clotrimazole/Betamethasone Dip [Lotrisone Cream 15 gm] 1 applic TP BID #1 tube Forms: Elevated Blood Pressure, Smoking Cessation Education Referrals: [facility] [Provider Group] - Follow up as needed
== END 2017-09-14 20:42 | disposition home or self-care (01) ==
LOC: ER 19:46
DX: L30.9 Dermatitis, unspecified (principal); F17.200 Nicotine dependence, unspecified, uncomplicated; R03.0 Elevated blood-pressure reading, without diagnosis of hypertension; Z88.6 Allergy status to analgesic agent
CPT/HCPCS: 99282

== ENCOUNTER 2017-11-02 23:14 | Emergency (ER) | payer MEDICAID ==
[2017-11-02 23:26] VITALS: BP 147/86
[2017-11-03] MEDS ORDERED: CEPHALEXIN 500 MG CAPSULE PO ONE (01:18)
--- NOTE | 2017-11-03 01:18 | ER Document Report ---
ED Extremity Problem, Lower - General Chief Complaint: Knee Injury Stated Complaint: KNEE INJURY Time Seen by Provider: 11/03/17 01:05 Mode of Arrival: Ambulatory Information source: Patient Notes: Chief complaint: Right knee laceration History of complain:( obtained from----patient) 27 years old male sustained a laceration over the right knee with the grass cutting tool. Around 5:00 this evening. Able to walk. Had his tetanus last year Onset: Sudden Duration: Just prior to arrival Severity: Mild Quality: Not contributable not contributing Context: Exacerbating factor and relieving factors: Flexion and extension REVIEW OF SYSTEMS: CONSTITUTIONAL : Denies fever, chills, or sweats. Denies recent illness. EENT: Denies eye, ear, throat, or mouth pain or symptoms. Denies nasal or sinus congestion or discharge. Denies throat, tongue, or mouth swelling or difficulty swallowing. CARDIOVASCULAR: Denies chest pain. Denies palpitations or racing or irregular heart beat. Denies ankle edema. RESPIRATORY: Denies cough, cold, or chest congestion. Denies shortness of breath, difficulty breathing, or wheezing. GASTROINTESTINAL: Denies distention. Denies nausea, vomiting, or diarrhea. Denies blood in vomitus, stools, or per rectum. Denies black, tarry stools. Denies constipation. GENITOURINARY: Denies difficulty urinating, painful urination, burning, frequency, blood in urine, or discharge. FEMALE GENITOURINARY: Denies vaginal bleeding, heavy or abnormal periods, irregular periods. Denies vaginal discharge or odor. MUSCULOSKELETAL: Denies back or neck pain or stiffness. Denies joint pain or swelling. SKIN: Denies rash, lesions or sores. HEMATOLOGIC : Denies easy bruising or bleeding. LYMPHATIC: Denies swollen, enlarged glands. NEUROLOGICAL: Denies confusion or altered mental status. Denies passing out or loss of consciousness. Denies dizziness or lightheadedness. Denies headache. Denies weakness or paralysis or loss of use of either side. Denies problems with gait or speech. Denies sensory loss, numbness, or tingling. Denies seizures. PSYCHIATRIC: Denies anxiety or stress. Denies depression, suicidal ideation, or homicidal ideation. ALL OTHER SYSTEMS REVIEWED AND NEGATIVE. PHYSICAL EXAMINATION: GENERAL: Well-appearing, well-nourished and in no acute distress. HEAD: Atraumatic, normocephalic. EYES: Pupils equal round and reactive to light, extraocular movements intact, conjunctiva are normal. ENT: Nares patent, oropharynx clear without exudates. Moist mucous membranes. NECK: Normal range of motion, supple without lymphadenopathy LUNGS: Breath sounds clear to auscultation bilaterally and equal. No wheezes rales or rhonchi. HEART: Regular rate and rhythm without murmurs ABDOMEN: Soft, nontender, nondistended abdomen. No guarding, no rebound. No masses appreciated. Examination of genitals-deferred Musculoskeletal: Normal range of motion, no pitting or edema. No cyanosis. Examination of the right knee at the medial side of small linear laceration of 3 cm noted foreskin thickness. NEUROLOGICAL: Cranial nerves grossly intact. Normal speech, normal gait. Normal sensory, motor exams PSYCH: Normal mood, normal affect. SKIN: Warm, Dry, normal turgor, no rashes or lesions noted. Dictation was performed using [employer] voice recognition software TRAVEL OUTSIDE OF THE [place] IN LAST 30 DAYS: No - HPI Severity: Mild - Related Data Allergies/Adverse Reactions: acetaminophen Allergy (Verified 08/04/17 17:02) Past Medical History - Social History Smoking Status: Smoker,Current Status Unk Cigarette use (# per day): No Chew tobacco use (# tins/day): No Smoking Education Provided: No Frequency of alcohol use: Rare Drug Abuse: None Lives with: Family Family History: Reviewed & Not Pertinent Renal/ Medical History: Denies: Hx Peritoneal Dialysis Psychiatric Medical History: Reports: Hx Attention Deficit Hyperactivity Disorder, Hx Bipolar Disorder Past Surgical History: Reports: Other - pilondal cyst - Immunizations Hx Diphtheria, Pertussis, Tetanus Vaccination: Yes Review of Systems - Review of Systems Notes: Dictated Physical Exam - Vital signs Vitals: Temp Pulse Resp BP Pulse Ox 98.2 F 102 H 20 147/86 H 98 11/02/17 23:24 11/02/17 23:24 11/02/17 23:24 11/02/17 23:24 11/02/17 23:24 - Notes Notes: Dictated Course - Vital Signs Vital signs: Temp Pulse Resp BP Pulse Ox 98.2 F 102 H 20 147/86 H 98 11/02/17 23:24 11/02/17 23:24 11/02/17 23:24 11/02/17 23:24 11/02/17 23:24 Procedures - Laceration/Wound Repair Right Medial Knee Time completed: 15:00 Wound length (cm): 3 Wound's Depth, Shape: Superficial Laceration pre-procedure: Chloraprep applied Wound explored: Clean Wound Repaired With: [place] Post-procedure wound care: Sterile dressing applied Post-procedure NV exam normal: Yes Complications: No Discharge - Discharge Clinical Impression: Laceration of knee Qualifiers: Encounter type: initial encounter Laterality: right Qualified Code(s): S81.011A - Laceration without foreign body, right knee, initial encounter Condition: Fair Disposition: HOME, SELF-CARE Instructions: Antibiotic Ointment Protection ([facility]) Prescriptions: Cephalexin Monohydrate [Keflex 500 mg Capsule] 500 mg PO Q6H 5 Days capsule
== END 2017-11-03 01:34 | disposition home or self-care (01) ==
LOC: ER 23:14
PROC: 0HQKXZZ Repair Right Lower Leg Skin, External Approach (ICD-10-PCS; principal; 2017-11-02)
DX: S81.011A Laceration without foreign body, right knee, initial encounter (principal); W45.8XXA Other foreign body or object entering through skin, initial encounter; F17.200 Nicotine dependence, unspecified, uncomplicated
CPT/HCPCS: 99283

== ENCOUNTER 2017-12-22 17:01 | Emergency (ER) | payer MEDICAID ==
[2017-12-22 17:22] VITALS: BP 143/90
--- NOTE | 2017-12-22 18:09 | ER Document Report ---
HPI - HPI Patient complains to provider of: Right elbow pain Pain Level: 4 Context: Patient is a 27-year-old male complaining of pain to his right elbow 2 days. Patient denies any trauma. Pain is aggravated with elbow extension, flexion, and lifting. Patient is left-hand dominant. Associated Symptoms: None Exacerbated by: Movement Relieved by: Denies Similar symptoms previously: Yes Recently seen / treated by doctor: No - ROS Systems Reviewed and Negative: Yes All other systems reviewed and negative - MUSCULOSKELETAL Musculoskeletal: REPORTS: Extremity pain Past Medical History - General Information source: Patient - Social History Smoking Status: Current Every Day Smoker Frequency of alcohol use: None Lives with: Family Family History: Reviewed & Not Pertinent Patient has suicidal ideation: No Patient has homicidal ideation: No Renal/ Medical History: Denies: Hx Peritoneal Dialysis Musculoskeletal Medical History: Reports Hx Musculoskeletal Trauma Psychiatric Medical History: Reports: Hx Attention Deficit Hyperactivity Disorder, Hx Bipolar Disorder Past Surgical History: Reports: Other - pilondal cyst - Immunizations Hx Diphtheria, Pertussis, Tetanus Vaccination: Yes Vertical Provider Document - CONSTITUTIONAL Agree With Documented VS: Yes Exam Limitations: No Limitations - INFECTION CONTROL TRAVEL OUTSIDE OF THE [place] IN LAST 30 DAYS: No - HEENT HEENT: Atraumatic, PERRLA - NECK Neck: Normal Inspection, Supple - RESPIRATORY Respiratory: Breath Sounds Normal - CARDIOVASCULAR Cardiovascular: Regular Rate, Regular Rhythm - MUSCULOSKELETAL/EXTREMETIES Musculoskeletal/Extremeties: Tender - Focal tenderness over right lateral and medial epicondyles. No olecranon tenderness. No effusion. Distal sensory motor circulation intact - NEURO Level of Consciousness: Awake, Alert, Appropriate Course - Re-evaluation Re-evalutation: 12/22/17 18:04 History and physical are consistent with acute epicondylitis. 12/22/17 18:16 After performing a Medical Screening Examination, I estimate there is LOW risk for OPEN FRACTURE, COMPARTMENT SYNDROME, DEEP VENOUS THROMBOSIS, ACUTE TENDON RUPTURE, or NEUROVASCULAR INJURY thus I consider the discharge disposition reasonable. I have reevaluated this patient multiple times and no significant life threatening changes are noted. The patient and I have discussed the diagnosis and risks, and we agree with discharging home to closely follow-up with their primary doctor or the referral orthopedist with the understanding that symptoms and presentations can change. We also discussed returning to the Emergency Department immediately if new or worsening symptoms occur. - Vital Signs Vital signs: Temp Pulse Resp BP Pulse Ox 97.8 F 86 18 143/90 H 98 12/22/17 17:21 12/22/17 17:21 12/22/17 17:21 12/22/17 17:21 12/22/17 17:21 Procedures - Immobilization right elbow Pre-Proc Neuro Vasc Exam: Normal Immobilizer type: Deejay wrap Performed by: PCT Post-Proc Neuro Vasc Exam: Normal Alignment checked and good: Yes Notes: 12/22/17 18:18 sling applied Discharge - Discharge Clinical Impression: Epicondylitis Condition: Stable Disposition: HOME, SELF-CARE Instructions: Tennis Elbow (Lateral Epicondylitis) ([facility]), Medial Epicondylitis ([facility]), Steroid Medication, Oral Narcotic Medication ([facility]) Additional Instructions: Take mediations as prescribed recommend counter traction splint - Tennis Elbow Strap ice and elevate elbow follow up with primary care if symptoms persist Prescriptions: Prednisone [Deltasone 20 mg Tablet] 3 tab PO DAILY 5 Days tablet Tramadol HCl [Ultram] 50 mg PO Q4H PRN #20 tablet PRN Reason:
[2017-12-25] MEDS ORDERED: DIAZEPAM 5 MG TABLET PO PRN (10:18)
[2017-12-25] MEDS ORDERED: TRAZODONE HCL 50 MG TABLET PO SCH (11:36)
== END 2017-12-22 18:22 | disposition home or self-care (01) ==
LOC: ER 17:01
DX: M77.11 Lateral epicondylitis, right elbow (principal); M77.01 Medial epicondylitis, right elbow; M25.521 Pain in right elbow; F17.200 Nicotine dependence, unspecified, uncomplicated
CPT/HCPCS: 99283

== ENCOUNTER 2017-12-24 21:33 | Inpatient (IN) | payer MEDICAID ==
[2017-12-25] MEDS ORDERED: CEFTRIAXONE INJ 1000 MG VIAL IV ONE (01:06)
[2017-12-25] MEDS ORDERED: NORMAL SALINE 1000 ML 1,000 ML IV ONE (01:06)
[2017-12-25] MEDS ORDERED: NICOTINE 21 MG/24 HR PATCH.TD24 TD ONE (01:07)
[2017-12-25] MEDS ORDERED: MORPHINE SULFATE 10 MG/ML INJ IV PRN (01:07)
--- NOTE | 2017-12-25 01:13 | ER Document Report ---
ED General - General Chief Complaint: Arm Pain Stated Complaint: ARM PAIN Time Seen by Provider: 12/24/17 23:07 Notes: Patient is a 27-year-old male with a past medical history who presents with 3 days of progressively worsening pain and swelling to his right forearm. The patient was seen in the emergency department 2 days ago for the same, diagnosed with a tendinitis and started on tramadol and prednisone. He states that these have not at all improved his symptoms and his symptoms have actually gotten dramatically worse. He describes a dull, throbbing, constant pain to the right forearm worsened by any attempt at moving the area or touching the area. He denies any associated fever or constitutional symptoms. Denies any trauma to the area. He denies any history of similar symptoms in the past. He has not followed up with his general doctor. TRAVEL OUTSIDE OF THE [place] IN LAST 30 DAYS: No - Related Data Allergies/Adverse Reactions: acetaminophen Allergy (Verified 12/25/17 03:24) Past Medical History - General Information source: Patient - Social History Smoking Status: Current Every Day Smoker Chew tobacco use (# tins/day): No Frequency of alcohol use: None Drug Abuse: None Lives with: Spouse/Significant other Family History: Reviewed & Not Pertinent Patient has suicidal ideation: No Patient has homicidal ideation: No Renal/ Medical History: Denies: Hx Peritoneal Dialysis Musculoskeletal Medical History: Reports Hx Musculoskeletal Trauma Psychiatric Medical History: Reports: Hx Attention Deficit Hyperactivity Disorder, Hx Bipolar Disorder Past Surgical History: Reports: Other - pilondal cyst - Immunizations Hx Diphtheria, Pertussis, Tetanus Vaccination: Yes Review of Systems - Review of Systems Notes: Constitutional: Negative for fever. HENT: Negative for sore throat. Eyes: Negative for visual changes. Cardiovascular: Negative for chest pain. Respiratory: Negative for shortness of breath. Gastrointestinal: Negative for abdominal pain, vomiting or diarrhea. Genitourinary: Negative for dysuria. Musculoskeletal: Positive for right forearm pain Skin: Positive for rash. Neurological: Negative for headaches, weakness or numbness. 10 point ROS negative except as marked above and in HPI. Physical Exam - Vital signs Vitals: Temp Pulse Resp BP Pulse Ox 98.0 F 74 16 148/92 H 98 12/24/17 21:48 12/24/17 21:48 12/24/17 21:48 12/24/17 21:48 12/24/17 21:48 Interpretation: Hypertensive Notes: PHYSICAL EXAMINATION: GENERAL: Appears uncomfortable but in no acute distress HEAD: Atraumatic, normocephalic. EYES: Pupils equal round and reactive to light, extraocular movements intact, sclera anicteric, conjunctiva are normal. ENT: nares patent, oropharynx clear without exudates. Moist mucous membranes. NECK: Normal range of motion, supple without lymphadenopathy LUNGS: Breath sounds clear to auscultation bilaterally and equal. No wheezes rales or rhonchi. HEART: Regular rate and rhythm without murmurs, 2+ radial pulses bilaterally. Capillary refill is less than 1 second in all digits of bilateral hands. ABDOMEN: Soft, nontender, normoactive bowel sounds. No guarding, no rebound. No masses appreciated. EXTREMITIES: Normal range of motion, marketed swelling and edema to the right forearm that is circumferential in nature. The compartments remain soft. NEUROLOGICAL: No focal neurological deficits. Moves all extremities spontaneously and on command. PSYCH: Normal mood, normal affect. SKIN: Warm, Dry, normal turgor, erythema as above diffusely over the right volar forearm. Course - Re-evaluation Re-evalutation: 12/25/17 01:13 Patient presents with severe swelling of the right forearm with associated induration to the entirety of the right hand consistent with diffuse edema that appears to be reactive to a local cellulitis. However I am concerned about the degree of the swelling and induration this is also worrisome for possible venous obstruction versus deep soft tissue infection. Patient's vitals are otherwise within normal limits. RMU motor and sensory distribution remains intact. 2+ radial pulse. Capillary refill less than 1 second in all digits of the right hand. The patient is not having constitutional symptoms. No symptoms to suggest a compartment syndrome as although the area does have diffuse swelling the compartments are otherwise soft and he does not present with a history that would suggest this that there has been no trauma to the area. Will obtain labs, CT of the upper extremity to further evaluate for a possible deep space infection and reassess. 12/25/17 03:32 CT scan does show evidence of a cellulitis without any evidence of a deep space infection. The patient has been started on ceftriaxone and vancomycin. His labs and vitals remained unremarkable but given the marked degree of swelling and the progression of his illness I do not believe outpatient management is appropriate. I discussed with the hospitalist Dr. Mari who is excepted for admission. - Vital Signs Vital signs: Temp Pulse Resp BP Pulse Ox 98.0 F 74 16 148/92 H 98 12/24/17 21:48 12/24/17 21:48 12/24/17 21:48 12/24/17 21:48 12/24/17 21:48 - Laboratory Result Diagrams: 12/25/17 01:23 12/25/17 01:23 Laboratory results interpreted by me: 12/25/17 12/25/17 01:23 01:23 WBC 11.3 H Sodium 145.4 H Chloride 110 H BUN 21 H Glucose 118 H Creatine Kinase 1412 H - Diagnostic Test Radiology reviewed: Reports reviewed Discharge - Discharge Clinical Impression: Cellulitis of right forearm, Pain and swelling of right forearm Condition: Fair Disposition: ADMITTED INPATIENT Admitting Provider: Hospitalist Unit Admitted: Medical Floor Referrals: JUDAH HUGO PA-C [Primary Care Provider] - Follow up as needed
[2017-12-25 01:43] LABS: ABSOLUTE EOSINOPHILS # (AUTO) 0.1 10^3/uL (0.0-0.6); ABSOLUTE LYMPHOCYTES (AUTO) 3.2 10^3/uL (0.5-4.7); ABSOLUTE MONOCYTES (AUTO) 0.6 10^3/uL (0.1-1.4); ABSOLUTE NEUT (AUTO) 7.4 10^3/uL (1.7-8.2); BASOPHILS % (AUTO) 0.4 % (0-2); EOSINOPHILS % (AUTO) 0.7 % (0-6); HEMOGLOBIN 15.9 g/dL (13.5-17.0); LYMPHOCYTES % (AUTO) 27.9 % (13-45); MEAN CORPUSCULAR HEMOGLOBIN 28.8 pg (27.0-33.4); MEAN CORPUSCULAR HGB CONC 33.8 g/dL (32.0-36.0); MEAN CORPUSCULAR VOLUME 85 fl (80-97); MONOCYTES % (AUTO) 5.6 % (3-13); PLATELET COUNT 222 10^3/uL (150-450); RED BLOOD COUNT 5.52 10^6/uL (4.35-5.55); RED CELL DISTRIBUTION WIDTH 13.6 % (11.5-14.0); SEGMENTED NEUTROPHILS % (AUTO) 65.4 % (42-78); TOTAL CELLS COUNTED % (AUTO) 100 %; WHITE BLOOD COUNT 11.3 10^3/uL (4.0-10.5)
[2017-12-25 02:01] LABS: ALANINE AMINOTRANSFERASE 68 U/L (21-72); ALBUMIN 4.4 g/dL (3.5-5.0); ALKALINE PHOSPHATASE 60 U/L (38-126); ANION GAP 13 (5-19); ASPARTATE AMINO TRANSFERASE 54 U/L (17-59); BILIRUBIN,DIRECT 0.3 mg/dL (0.0-0.4); BILIRUBIN,TOTAL 0.5 mg/dL (0.2-1.3); BLOOD UREA NITROGEN 21 mg/dL (7-20); CALCIUM 8.9 mg/dL (8.4-10.2); CARBON DIOXIDE 22 mmol/L (22-30); CHLORIDE 110 mmol/L (98-107); CREATINE KINASE 1412 U/L (55-170); GLUCOSE 118 mg/dL (75-110); POTASSIUM 3.8 mmol/L (3.6-5.0); SODIUM 145.4 mmol/L (137-145); TOTAL PROTEIN 7.2 g/dL (6.3-8.2)
--- NOTE | 2017-12-25 03:14 | RADIOLOGY REPORT (SQ) ---
EXAM DESCRIPTION: CT UPPER EXTREMITY WITH IV CONTRAST COMPLETED DATE/TME: 12/25/2017 01:05 CLINICAL HISTORY: 27 years Male, rue swelling, induration, eval deep space infectio Comparison: None. Technique: IV contrast. Coronal and sagittal reformat. This exam was performed according to our departmental dose-optimization program, which includes automated exposure control, adjustment of the mA and/or kV according to patient size and/or use of iterative reconstruction technique. [facility]: Dose Right [facility]: CareDose [facility]: Dose Right [facility]: Teradose 4D [facility]: [facility] LIMITATIONS: None Findings: Mild subcutaneous edema of the anterior aspect of the distal right forearm. No radiopaque foreign body. No abscess. No drainable fluid collection. No evidence of bone or joint involvement. IMPRESSION: Mild, subcutaneous edema-cellulitis pattern anteriorly of the distal right forearm.
[2017-12-25] MEDS ORDERED: VANCOMYCIN HCL INJ 1000 MG VIAL IV ONE (03:21)
[2017-12-25] MEDS ORDERED: KETOROLAC TROMETHAMINE INJ/PF 30 MG/1 ML SDV IV PRN (03:39)
[2017-12-25] MEDS ORDERED: MAG HYDROX/AL HYDROX/SIMETH SUSP 30 ML UDCUP PO PRN (03:40)
[2017-12-25] MEDS ORDERED: NORMAL SALINE 1000 ML 1,000 ML IV SCH (03:45)
[2017-12-25] MEDS ORDERED: VANCOMYCIN HCL 0 MG in DEXTROSE 5%-WATER 250 ML IV NR (03:45)
--- NOTE | 2017-12-25 05:07 | PDOC H&P ---
History of Present Illness Admission Date/PCP: 12/25/17 03:57 JUDAH HUGO PA-C Patient complains of: Right arm pain and swelling History of Present Illness: SHARA GREENE JR is a 27 year old male with past medical history of anger, Morbid obesity and swelling of the right arm for 5 days, seen in the emergency room 48 hours ago diagnosed with tendinitis prescribed prednisone and tramadol resulting in marketed worsening over the last 24 hours prompting reevaluation emergency room. Patient denies trauma, insect bite or localized erythema. In the emergency room is found to have leukocytosis, rhabdomyolysis and anterior distal right forearm cellulitis by CT. He receives IV Rocephin and vancomycin and referred to the hospitalist for admission. Past Medical History Cardiac Medical History: Reports: Hypertension Psychiatric Medical History: Reports: Attention Deficit Hyperactivity Disorder, Bipolar Disorder, Tobacco Dependency Past Surgical History Past Surgical History: Reports: Other - pilondal cyst Social History Information Source: Patient Lives with: Spouse/Significant other Smoking Status: Current Every Day Smoker Frequency of Alcohol Use: Occasional Drugs: None - Advance Directive Resuscitation Status: Full Code Family History Family History: CAD, Malignancy Parental Family History Reviewed: Yes Children Family History Reviewed: Yes Sibling(s) Family History Reviewed.: Yes Medication/Allergy Home Medications: Atomoxetine HCl [Strattera] 25 mg PO BID 03/15/17 Doxycycline Hyclate 100 mg PO BID #20 tablet 03/15/17 Olanzapine/Fluoxetine HCl [Symbyax 6-25 mg Capsule] 1 tab PO DAILY 03/15/17 Oxycodone HCl/Acetaminophen [Percocet 5-325 mg Tablet] 1 tab PO ASDIR PRN #12 tablet 03/15/17 Ondansetron [Zofran Odt 4 mg Tablet] 1 - 2 tab PO Q4H PRN #15 tab.rapdis Amox Tr/Potassium Clavulanate [Augmentin 875-125 Tablet] 1 tab PO BID 7 Days tablet 08/04/17 Oxycodone HCl [Oxy-Ir 5 mg Tablet] 5 mg PO Q8 PRN #10 tab 08/04/17 Clotrimazole/Betamethasone Dip [Lotrisone Cream 15 gm] 1 applic TP BID #1 tube 09/14/17 Cephalexin Monohydrate [Keflex 500 mg Capsule] 500 mg PO Q6H 5 Days capsule Prednisone [Deltasone 20 mg Tablet] 3 tab PO DAILY 5 Days tablet 12/22/17 Tramadol HCl [Ultram] 50 mg PO Q4H PRN #20 tablet 12/22/17 Allergies/Adverse Reactions: acetaminophen Allergy (Verified 12/25/17 03:24) Review of Systems Constitutional: ABSENT: chills, fever(s), headache(s), weight gain, weight loss Eyes: ABSENT: visual disturbances Ears: ABSENT: hearing changes Cardiovascular: ABSENT: chest pain, dyspnea on exertion, edema, orthropnea, palpitations Respiratory: ABSENT: cough, hemoptysis Gastrointestinal: ABSENT: abdominal pain, constipation, diarrhea, hematemesis, hematochezia, nausea, vomiting Genitourinary: ABSENT: dysuria, hematuria Musculoskeletal: ABSENT: joint swelling Integumentary: ABSENT: rash, wounds Neurological: ABSENT: abnormal gait, abnormal speech, confusion, dizziness, focal weakness, syncope Psychiatric: ABSENT: anxiety, depression, homidical ideation, suicidal ideation Endocrine: ABSENT: cold intolerance, heat intolerance, polydipsia, polyuria Hematologic/Lymphatic: ABSENT: easy bleeding, easy bruising Physical Exam Vital Signs: Temp Pulse Resp BP Pulse Ox 98.0 F 74 16 148/92 H 98 12/24/17 21:48 12/24/17 21:48 12/24/17 21:48 12/24/17 21:48 12/24/17 21:48 General appearance: PRESENT: cooperative, mild distress, well-developed, well- nourished. ABSENT: disheveled Head exam: PRESENT: atraumatic, normocephalic Eye exam: PRESENT: conjunctiva pink, EOMI, PERRLA. ABSENT: scleral icterus Ear exam: PRESENT: normal external ear exam Mouth exam: PRESENT: moist, tongue midline Neck exam: ABSENT: carotid bruit, JVD, lymphadenopathy, thyromegaly Respiratory exam: PRESENT: clear to auscultation luann. ABSENT: rales, rhonchi, wheezes Cardiovascular exam: PRESENT: RRR. ABSENT: diastolic murmur, rubs, systolic murmur Pulses: PRESENT: normal dorsalis pedis pul Vascular exam: PRESENT: normal capillary refill GI/Abdominal exam: PRESENT: normal bowel sounds, soft. ABSENT: distended, guarding, mass, organolmegaly, rebound, tenderness Rectal exam: PRESENT: deferred Extremities exam: PRESENT: full ROM. ABSENT: calf tenderness, clubbing, pedal edema Musculoskeletal exam: PRESENT: ambulatory, deformity, full ROM, tenderness, other - Right forearm markedly swollen with pain to palpation no open ulcer, exudate or obvious nidus Neurological exam: PRESENT: alert, awake, oriented to person, oriented to place , oriented to time, oriented to situation, CN II-XII grossly intact. ABSENT: motor sensory deficit Psychiatric exam: PRESENT: appropriate affect, normal mood. ABSENT: homicidal ideation, suicidal ideation Skin exam: PRESENT: dry, intact, warm. ABSENT: cyanosis, rash Results Impressions: Upper Extremity CT 12/25/17 01:05 IMPRESSION: Mild, subcutaneous edema-cellulitis pattern anteriorly of the distal right forearm. Assessment & Plan - Diagnosis (1) Cellulitis of right forearm Is this a current diagnosis for this admission?: Yes Plan: Empiric antibiotics of vancomycin and Rocephin continued, follow-up surgical consult, CBC and culture. (2) Rhabdomyolysis Is this a current diagnosis for this admission?: Yes Plan: Concern for compartment syndrome, surgery consulted. IV fluid challenge, reevaluate chemistry and total CK - Time Time Spent: 30 to 50 Minutes - Inpatient Certification Medical Necessity: Need Close Monitoring Due to Risk of Patient Decompensation
[2017-12-25] MEDS: HEPARIN SOD (PORCINE) 5,000 UNIT/ML 1 ML SYRINGE SUBCUT SCH ×3 (06:15→22:50)
[2017-12-25] MEDS: NORMAL SALINE 1000 ML 1,000 ML IV PRN ×2 (07:00→11:10)
[2017-12-25] MEDS ORDERED: FLUOXETINE HCL PO SCH (10:00)
[2017-12-25] MEDS ORDERED: OLANZAPINE PO SCH (10:00)
[2017-12-25] MEDS ORDERED: CEFTRIAXONE 1 GM/D5W RTU 1 GM/50 ML RTUPB IV SCH (10:00)
--- NOTE | 2017-12-25 14:03 | RADIOLOGY REPORT (SQ) ---
EXAM DESCRIPTION: VENOUS UNILATERAL UPPER COMPLETED DATE/TIME: 12/25/2017 1:36 pm REASON FOR STUDY: RIGHT ARM SWELLING, R/O DVT COMPARISON: None. TECHNIQUE: Dynamic and static morales scale and color images acquired of the right arm venous system. S elected spectral images acquired with additional compression and augmentation maneuvers. The contrala teral subclavian vein and internal jugular vein were also imaged. Images stored on PACS. LIMITATIONS: None. FINDINGS: INTERNAL JUGULAR VEIN: Normal phasicity, compression, augmentation. No visualized echogeni c material on morales scale. No defects on color images. Comparison opposite side normal. SUBCLAVIAN VEIN: Normal compression, augmentation. No visualized echogenic material on morales scale. No defects on color images. AXILLARY VEIN: Normal compression, augmentation. No visualized echogenic material on morales scale. No d efects on color images. BRACHIAL VEIN: Normal compression, augmentation. No visualized echogenic material on morales scale. No d efects on color images. BASILIC VEIN: Normal compression, augmentation. No visualized echogenic material on morales scale. No de fects on color images. CEPHALIC VEIN: Normal compression, augmentation. No visualized echogenic material on morales scale. No d efects on color images. OTHER: No other significant finding. CONTRALATERAL SUBCLAVIAN VEIN AND INTERNAL JUGULAR VEIN: Normal phasicity, compression and augmentation. No visualized echogenic material on morales scale. No de fects on color images. IMPRESSION: NO EVIDENCE DVT OR SVT IN THE RIGHT ARM. TECHNICAL DOCUMENTATION: JOB ID: [id number] [employer]- All Rights Reserved Reading location - IP/workstation name: [email or web address]
[2017-12-25] MEDS: VANCOMYCIN HCL 1,500 MG in DEXTROSE 5%-WATER 250 ML IV SCH ×2 (15:00→22:49)
[2017-12-25] MEDS: DOCUSATE SODIUM 100 MG CAPSULE PO SCH ×2 (15:13→18:07)
--- NOTE | 2017-12-25 15:51 | RADIOLOGY REPORT (SQ) ---
EXAM DESCRIPTION: MRI RT UPPER JOINT WITHOUT COMPLETED DATE/TIME: 12/25/2017 2:25 pm REASON FOR STUDY: Right forearm and elbow pain and swelling COMPARISON: CT dated 12/25/2017 TECHNIQUE: Right elbow images acquired and stored on PACS. Multiplanar images to include fat sensiti ve sequences as T1, fluid sensitive sequences as T2/STIR, cartilage sensitive sequences as FSPD, and gradient echo sequences. LIMITATIONS: None. FINDINGS: BONE MARROW: No alteration of signal to suggest marrow replacement or edema. No occult fra cture. No large osteophytes. JOINT EFFUSION: None noted. No loose bodies. ARTICULAR SURFACES: Normal. MEDIAL COLLATERAL LIGAMENT COMPLEX: Intact without edema or tear. MEDIAL EPICONDYLE AND COMMON FLEXOR TENDON: No tendinopathy. No partial or full-thickness tear. LATERAL COLLATERAL LIGAMENT: Intact without edema or tear. LATERAL EPICONDYLE AND COMMON EXTENSOR TENDON: No tendinopathy. No partial or full-thickness tear. LATERAL ULNAR COLLATERAL LIGAMENT: Intact without evidence for tear. BICEPS TENDON: Intact. No partial or full-thickness tendon tear. No muscle edema. TRICEPS TENDON: Intact. ULNAR NERVE: Well-visualized without edema or encroachment. ADJACENT SOFT TISSUES: Diffuse edema homogeneous Virgilio involves both the brachialis and the brachia rad ialis musculature, without evidence of tendon injury, fluid collection, or hematoma. Gradient imagin g reveals no interstitial hemorrhage. The muscle bulk is normal. OTHER: No other significant finding. IMPRESSION: Given history of 5 days of worsening pain, diffuse edema seen within the brachialis and brachioradialis musculature is favored to represent over-use injury such as DOMS (delayed onset muscl e soreness). No evidence of tendon injury, fluid collection, or mass. TECHNICAL DOCUMENTATION: JOB ID: [id number] [employer]- All Rights Reserved Reading location - IP/workstation name: [email or web address]
[2017-12-25] MEDS ORDERED: DIAZEPAM 5 MG TABLET PO PRN (20:52)
[2017-12-25] MEDS ORDERED: CEFTRIAXONE SODIUM 1,000 MG in NORMAL SALINE 50 ML IV SCH (22:00)
[2017-12-26] MEDS: NORMAL SALINE 1000 ML 1,000 ML IV PRN (02:50)
[2017-12-26] MEDS: HEPARIN SOD (PORCINE) 5,000 UNIT/ML 1 ML SYRINGE SUBCUT SCH (05:27)
[2017-12-26] MEDS: VANCOMYCIN HCL 1,500 MG in DEXTROSE 5%-WATER 250 ML IV SCH (05:30)
[2017-12-26 05:42] LABS: ABSOLUTE BASOPHILS # (AUTO) 0.1 10^3/uL (0.0-0.2); ABSOLUTE EOSINOPHILS # (AUTO) 0.2 10^3/uL (0.0-0.6); ABSOLUTE LYMPHOCYTES (AUTO) 3.9 10^3/uL (0.5-4.7); ABSOLUTE MONOCYTES (AUTO) 0.6 10^3/uL (0.1-1.4); BASOPHILS % (AUTO) 0.6 % (0-2); EOSINOPHILS % (AUTO) 2.8 % (0-6); HEMATOCRIT 44.3 % (37.9-51.0); HEMOGLOBIN 14.9 g/dL (13.5-17.0); LYMPHOCYTES % (AUTO) 44.5 % (13-45); MEAN CORPUSCULAR HEMOGLOBIN 28.8 pg (27.0-33.4); MEAN CORPUSCULAR HGB CONC 33.7 g/dL (32.0-36.0); MEAN CORPUSCULAR VOLUME 85 fl (80-97); MONOCYTES % (AUTO) 6.5 % (3-13); PLATELET COUNT 192 10^3/uL (150-450); RED BLOOD COUNT 5.19 10^6/uL (4.35-5.55); RED CELL DISTRIBUTION WIDTH 13.9 % (11.5-14.0); SEGMENTED NEUTROPHILS % (AUTO) 45.6 % (42-78); TOTAL CELLS COUNTED % (AUTO) 100 %; WHITE BLOOD COUNT 8.8 10^3/uL (4.0-10.5)
[2017-12-26 06:03] LABS: ANION GAP 11 (5-19); BLOOD UREA NITROGEN 16 mg/dL (7-20); CALCIUM 8.6 mg/dL (8.4-10.2); CARBON DIOXIDE 24 mmol/L (22-30); CHLORIDE 108 mmol/L (98-107); CREATINE KINASE 818 U/L (55-170); GLUCOSE 104 mg/dL (75-110); SODIUM 142.8 mmol/L (137-145)
--- NOTE | 2017-12-26 08:07 | PDOC CONSULTATION ---
Consultation Consult Date: 12/25/17 Consult reason:: Right forearm concern for compartment syndrome History of Present Illness Admission Date/PCP: 12/25/17 07:41 JUDAH HUGO PA-C History of Present Illness: SHARA GREENE JR is a 27 year old male came in yesterday on 818 with concerns and pain of the right forearm and elbow with no acute injuries. He was evaluated and noted he had a white count swelling and pain so there was concern for potential cellulitis 40 was admitted for IV antibiotics. They also order some creatinine kinase showing that patient has some crease the case and concern for rhabdomyolysis. Orthopedic was consulted to evaluate and rule out compartment syndrome. She denies any numbness or tingling but complains of pain with motion and pain with palpation at the anterior aspect of the elbow and a significant swelling. Denies previous injuries denies previous surgeries and denies any other extremity or body injury describes the pain at rest 1 or 2 out of 5 but 5 out of 5 with motion especially with extension of the elbow. Past Medical History Cardiac Medical History: Reports: Hypertension Psychiatric Medical History: Reports: Attention Deficit Hyperactivity Disorder, Bipolar Disorder, Tobacco Dependency Past Surgical History Past Surgical History: Reports: Other - pilondal cyst Social History Lives with: Spouse/Significant other Smoking Status: Current Every Day Smoker Cigarettes Packs Per Day: 1.5 Number of Years Smokin Last Time Smoked: 12/24/2017 Frequency of Alcohol Use: Occasional Hx Recreational Drug Use: No Drugs: None Hx Prescription Drug Abuse: No - denies - Advance Directive Resuscitation Status: Full Code Family History Family History: CAD, Malignancy Parental Family History Reviewed: No Children Family History Reviewed: No Sibling(s) Family History Reviewed.: No Medication/Allergy Home Medications: Diazepam [Valium] 10 mg PO HSP PRN 12/25/17 Vilazodone HCl [Viibryd] 20 mg PO DAILY 12/25/17 Allergies/Adverse Reactions: acetaminophen Allergy (Verified 12/25/17 03:24) Review of Systems Constitutional: ABSENT: fever(s), headache(s), night sweats Eyes: ABSENT: visual disturbances Ears: ABSENT: hearing changes Nose, Mouth, and Throat: ABSENT: sore throat Cardiovascular: ABSENT: edema, orthropnea, palpitations Respiratory: ABSENT: dyspnea, hemoptysis Gastrointestinal: ABSENT: diarrhea, dysphagia, hematemesis, hematochezia, nausea , vomiting Genitourinary: ABSENT: dysuria, hematuria Musculoskeletal: PRESENT: as per HPI Integumentary: ABSENT: lesions, pruritus, rash Neurological: ABSENT: abnormal movements, abnormal speech, focal weakness, numbness, paresthesias Psychiatric: ABSENT: hallucinations, homidical ideation, suicidal ideation Endocrine: ABSENT: cold intolerance, heat intolerance, polyphagia, polyuria Hematologic/Lymphatic: ABSENT: easy bruising, lymphadenopathy Allergic/Immunologic: ABSENT: seasonal rhinorrhea Physical Exam Vital Signs: Temp Pulse Resp BP Pulse Ox 36.6 C 62 16 120/67 98 12/25/17 11:14 12/25/17 11:14 12/25/17 11:14 12/25/17 11:14 12/25/17 11:14 Intake & Output 12/24/17 12/25/17 12/26/17 06:59 06:59 06:59 Intake Total 1000 Balance 1000 General appearance: PRESENT: no acute distress Head exam: PRESENT: atraumatic, normocephalic Eye exam: PRESENT: EOMI, PERRLA Ear exam: PRESENT: TM's normal bilaterally. ABSENT: bleeding Mouth exam: PRESENT: neck supple. ABSENT: laceration Neck exam: ABSENT: lymphadenopathy, tenderness, thyromegaly, tracheal deviation Cardiovascular exam: PRESENT: RRR Pulses: PRESENT: normal radial pulses Vascular exam: PRESENT: normal capillary refill GI/Abdominal exam: PRESENT: soft. ABSENT: rigid, tenderness Neurological exam: PRESENT: alert, awake, oriented to person, oriented to place , oriented to time, oriented to situation Skin exam: PRESENT: intact, warm. ABSENT: erythema, rash, skin tears Adult Front & Back Image: 1 - Tenderness to palpation of the biceps tendon and antecubital fossa region. His forearm is significant swelling compared to the non-affected side. Flexion of the elbow does not cause pain but attempted full extension of his elbow causes pain in the antecubital fossa region. He is tender over the anterior forearm. It is warm but there is no fluctuance and there is no erythema. He has full range of motion at the wrist despite his soreness. Pronation supination is intact. Good radial pulse with a good sensation to light touch and motor 5 out of 5 with the radial/ulnar/median nerve distribution. Compartments are soft and depressible. No signs of compartment syndrome. Results Impressions: Upper Extremity MRI 12/25/17 00:00 IMPRESSION: Given history of 5 days of worsening pain, diffuse edema seen within the brachialis and brachioradialis musculature is favored to represent over-use injury such as DOMS (delayed onset muscle soreness). No evidence of tendon injury, fluid collection, or mass. Upper Extremity CT 12/25/17 01:05 IMPRESSION: Mild, subcutaneous edema-cellulitis pattern anteriorly of the distal right forearm. Venous Doppler Study 12/25/17 10:35 IMPRESSION: NO EVIDENCE DVT OR SVT IN THE RIGHT ARM. Status: Image reviewed by me Assessment & Plan - Diagnosis (1) Pain and swelling of right forearm Is this a current diagnosis for this admission?: Yes Plan: 27-year-old gentleman with right forearm and elbow swelling and pain but no specific injury. MRI shows myositis with no recent injury. He did have a white count of 11.3 has gone down to 8. This can be due to inflammation or potential myositis but there is no source of infection that I can identify at this moment. He has no fevers or chills. He has some elevated creatinine kinase due to the myositis but I believe that patient does not have any signs of compartment syndrome therefore patient can follow-up with orthopedics as an outpatient for further monitoring and evaluation.
[2017-12-26] MEDS: DOCUSATE SODIUM 100 MG CAPSULE PO SCH (09:51)
[2017-12-26] MEDS ORDERED: (PENDING PHARMACY ID) (Vilazodone Hcl [Viibryd] 20 MG) PO SCH (10:00)
[2017-12-26 11:18] VITALS: BP 135/80
--- NOTE | 2017-12-26 16:03 | PDOC DISCHARGE SUMMARY ---
General - Admit/Disc Date/PCP Admission Date/Primary Care Provider: 12/25/17 07:41 JUDAH HUGO PA-C Discharge Date: 12/26/17 - Additional Information Resuscitation Status: Full Code Discharge Diet: As Tolerated Discharge Activity: Activity As Tolerated Prescriptions: Amox Tr/Potassium Clavulanate [Augmentin 875-125 mg Tablet] 1 tab PO BID 3 Days #6 tablet Terbinafine HCl [Terbinafine] 15 gm TP BID 14 Days #2 cream..g. Home Medications: Diazepam [Valium] 10 mg PO HSP PRN 12/25/17 Vilazodone HCl [Viibryd] 20 mg PO DAILY 12/25/17 Amox Tr/Potassium Clavulanate [Augmentin 875-125 mg Tablet] 1 tab PO BID 3 Days #6 tablet 12/26/17 Terbinafine HCl [Terbinafine] 15 gm TP BID 14 Days #2 cream..g. 12/26/17 History of Present Illness History of Present Illness: SHARA FONSECA JR is a 27 year old male with past medical history of anger, Morbid obesity and swelling of the right arm for 5 days, seen in the emergency room 48 hours ago diagnosed with tendinitis prescribed prednisone and tramadol resulting in marketed worsening over the last 24 hours prompting reevaluation emergency room. Patient denies trauma, insect bite or localized erythema. In the emergency room is found to have leukocytosis, rhabdomyolysis and anterior distal right forearm cellulitis by CT. He received IV Rocephin and vancomycin and referred to the hospitalist for admission. Hospital Course Hospital Course: Mr. Fonseca was admitted for acute right arm swelling. He initially presented to the ER a day prior to admission and was treated as a case of possible tennis elbow. Patient was given steroids and said that in less than 24 hours the swelling has worsened. He initially denied any trauma, exertion or overuse of his arms. On presentation again to the ER, patient had a CT which showed signs concerning for possible cellulitis. He was started on empiric antibiotics. Orthopedics was consulted who recommended doing an MRI. MRI did show nonspecific muscle inflammation but was more consistent with possible muscle overuse rather than cellulitis. Upon further questioning, patient did endorse that he did his routine gym workup and was doing arm weights and exercises the night prior to his arm swelling. Ultrasound duplex of the right upper extremity was also pursued to rule out a DVT and this came back normal. Patient is very muscular and does have big arms. His girlfriend brought the arm splint that he used at home and this really is too tight for his arm. Right arm pain and swelling did improve overnight with arm elevation. His right arm swelling likely could have been aggravated by the tight arm splint. He will follow-up with his family doctor this week and also with orthopedics if there is persistent arm swelling. Physical Exam Vital Signs: Temp Pulse Resp BP Pulse Ox 97.6 F 66 14 135/80 H 98 12/26/17 11:26 12/26/17 11:26 12/26/17 11:26 12/26/17 11:26 12/26/17 11:26 Intake & Output 12/25/17 12/26/17 12/27/17 06:59 06:59 06:59 Intake Total 3756 250 Balance 3756 250 Weight 278 lb 0.046 oz Results Laboratory Results: 12/26/17 05:13 12/26/17 05:13 12/26/17 12/26/17 05:13 05:13 WBC 8.8 RBC 5.19 Hgb 14.9 Hct 44.3 MCV 85 MCH 28.8 MCHC 33.7 RDW 13.9 Plt Count 192 Seg Neutrophils % 45.6 Lymphocytes % 44.5 Monocytes % 6.5 Eosinophils % 2.8 Basophils % 0.6 Absolute Neutrophils 4.0 Absolute Lymphocytes 3.9 Absolute Monocytes 0.6 Absolute Eosinophils 0.2 Absolute Basophils 0.1 Sodium 142.8 Potassium 4.0 Chloride 108 H Carbon Dioxide 24 Anion Gap 11 BUN 16 Creatinine 1.08 Est GFR ( Amer) > 60 Est GFR (Non-Af Amer) > 60 Glucose 104 Calcium 8.6 12/26/17 05:13 Creatine Kinase 818 H Impressions: Upper Extremity MRI 12/25/17 00:00 IMPRESSION: Given history of 5 days of worsening pain, diffuse edema seen within the brachialis and brachioradialis musculature is favored to represent over-use injury such as DOMS (delayed onset muscle soreness). No evidence of tendon injury, fluid collection, or mass. Upper Extremity CT 12/25/17 01:05 IMPRESSION: Mild, subcutaneous edema-cellulitis pattern anteriorly of the distal right forearm. Venous Doppler Study 12/25/17 10:35 IMPRESSION: NO EVIDENCE DVT OR SVT IN THE RIGHT ARM. Qualifiers - * PATIENT BEING DISCHARGED WITH ANY OF THE FOLLOWING DIAGNOSIS: No
== END 2017-12-26 11:30 | disposition home or self-care (01) | DRG 603 ==
LOC: ER 21:33 → EH 12-25 03:57 → 4N 12-25 06:45 → OBSVTOIN 12-25 07:41
PROVIDERS: ADMIT Internal Medicine; ATTEND Internal Medicine
DX: L03.113 Cellulitis of right upper limb (principal); M62.82 Rhabdomyolysis; Z68.41 Body mass index [BMI] 40.0-44.9, adult; I10 Essential (primary) hypertension; M79.631 Pain in right forearm; F90.9 Attention-deficit hyperactivity disorder, unspecified type; E66.01 Morbid (severe) obesity due to excess calories; F17.210 Nicotine dependence, cigarettes, uncomplicated
CPT/HCPCS: 36415; 80048; 80053; 82550; 83036; 85025; 87040; 93971; 96361; 96365; 96375; 99285; G0378; J0696; J1885; J2270; J3370; J7030; J7060